=== PATIENT | female | born 1955 | race Caucasian/White ===

== ENCOUNTER 2021-06-30 12:51 | Outpatient (CLI) | payer MEDICARE, SELFPAY ==
--- NOTE | ~2021-06-30 | CT_ITS ---
EXAMINATION: CT lung screening DATE: 06/30/2021 13:15 INDICATION: Heart palpitations. Tobacco dependence history. TECHNIQUE: Computed tomography (CT) of the chest was performed without intravenous contrast. The dose -length product was 59.87 mGy-cm. Automated exposure control and iterative reconstruction technique w ere employed. COMPARISON: None FINDINGS: There is atherosclerosis of the aorta and coronary arteries. Heart size is normal. No signi ficant pleural or pericardial effusion. No endobronchial lesions. No focal airspace consolidation. No pneumothorax. There is a 5 mm right middle lobe nodule, image 69. There are a few smaller 2-3 mm nod ules bilaterally. Mild emphysema. No acute osseous abnormality. IMPRESSION: 1. Lung-RADS category 2: Benign appearance or behavior. Continue annual screening with noncontrast lo w-dose chest CT in 12 months. Reviewed, dictated and finalized at location A. IMPRESSION: 1. Lung-RADS category 2: Benign appearance or behavior. Continue annual screeni ng with noncontrast low-dose chest CT in 12 months.
== END 2021-06-30 12:52 | disposition home or self-care (01) ==
PROVIDERS: PCP Family Medicine; Visit Provider Family Medicine
DX: Z12.2 Encounter for screening for malignant neoplasm of respiratory organs (principal); Z87.891 Personal history of nicotine dependence
CPT/HCPCS: 71271

== ENCOUNTER 2022-05-13 12:00 | Emergency (ER) | payer MEDICARE, MEDICAID, SELFPAY ==
--- NOTE | ~2022-05-13 | XR_ITS ---
XR chest 1V portable DATE: 05/13/2022 12:43 INDICATION: Dizziness TECHNIQUE: Portable AP chest on 05/13/2022 at 1247 hours COMPARISON: 06/30/2021 CT lung screening FINDINGS: Normal heart size. Aortic calcification. No hilar or mediastinal enlargement. No pulmonary infiltrate or consolidation, pleural effusion or pulmonary vascular congestion or pneumo thorax. Osteopenia. Old healed right rib fractures. IMPRESSION: No active cardiopulmonary disease Aortic atherosclerosis Osteopenia Reviewed, dictated and finalized at location A.
--- NOTE | 2022-05-13 12:15 | ED.WEAKNESS ---
HPI - Weakness General Chief complaint: Weakness Stated complaint: unable to walk Time Seen by Provider: 05/13/22 12:16 Source: patient Mode of arrival: wheelchair History of Present Illness HPI Narrative: 67-year-old female with a history of hypertension, diabetes mellitus presents to the ER with -- weakness -- difficulty walking. chronic knee pain Complaint: generalized weakness Onset (ago): week(s) Duration: constant Location: generalized Related Data Home Medications Medication Instructions Recorded Confirmed No Home Medications 05/13/22 05/13/22 Allergies Allergy/AdvReac Type Severity Reaction Status Date / Time Sulfa (Sulfonamide Allergy Unknown Unknown Verified 05/13/22 12:38 Antibiotics) Review of Systems Review of Systems: All systems reviewed & are unremarkable except as noted in HPI and below Constitutional: Constitutional: Reports as per HPI and Reports no additional constitutional complaints Eyes: Eyes: Reports as per HPI and Reports no additional eye complaints ENT: Reports system reviewed and no additional complaints, except as documented and Reports as per HPI Cardiovascular: Cardiovascular: Reports as per HPI and Reports no additional cardiovascular complaints Respiratory: Respiratory: Reports as per HPI and Reports no additional respiratory complaints Gastrointestinal: Gastrointestinal: Reports as per HPI and Reports no additional gastrointestinal complaints Genitourinary: Genitourinary: Reports no additional female genitourinary complaints and Reports as per HPI Musculoskeletal: Musculoskeletal: Reports no additional musculoskeletal complaints, Reports as per HPI and Reports arthralgias Comments: bilateral knee pain Integumentary/Breasts: Skin/Breast: Reports system reviewed and no additional complaints, except as docu Neurologic: Reports system reviewed and no additional complaints, except as documented and Reports as per HPI Psychiatric: Psychiatric: Reports no additional psychiatric complaints and Reports as per HPI Endocrine: Endocrine: Reports no additional endocrine complaints and Reports as per HPI Hematologic/Lymphatic: Hematologic/Lymphatic: Reports no additional hematologic/lymphatic complaints and Reports as per HPI Allergic/Immunologic: Allergic/Immunologic: Reports no additional allergic/immunologic complaints and Reports as per HPI [facility] Social History Social History Smoking status: Current every day smoker Alcohol intake: current Exam Const: General: ill appearing Nutritional Appearance: thin Orientation/consciousness: patient oriented x3 Limitations: no limitations HENMT: Head: normal to inspection Ears: external ears normal General nose exam: Normal external nose present Face and sinus: normal facial exam Mouth: Yes Normal oral and palatal mucosa present Teeth and gingiva: dentition normal ( extensive dental caries) Throat: posterior oropharynx normal Eyes: Conjunctivae: conjunctivae normal Pupils: Equal, round and reactive pupils present EOM: EOMs intact bilaterally Direct Ophthalmoscopy: no photophobia Neck: Neck: normal visual inspection, no lymphadenopathy and no meningeal signs Chest: Chest palpation & inspection: normal inspection of the chest Resp: Effort & Inspection: normal respiratory effort Auscultation: diminished lung sounds Cardio: Rate: regular rate Rhythm: regular rhythm GI: GI Palp: Yes Soft to palpation Other: no tenderness/rigidity /rebound : General: Yes no CVA tenderness Back/Spine/Pelvis: Back: no CVA tenderness Skin: General skin exam: normal color Rashes: no rashes Wounds: no wounds Neuro: General: patient oriented x3, moves all extremities, no meningeal signs, no focal motor deficits and CN's II-XI intact bilaterally Speech: normal speech Extrem: General: normal to inspection, no clubbing, cyanosis or edema and no pedal edema Psych
--- NOTE | 2022-05-13 12:25 | ECG_ITS ---
Measurements Intervals [place] Rate: 98 P: -60 ME: 190 QRS: 66 QRSD: 86 T: 66 QT: 363 QTc: 464 Interpretive Statements SINUS RHYTHM WITH FREQUENT VENTRICULAR PREMATURE COMPLEXES WITH OCCASIONAL SUPRAVENTRICULAR PREMATURE COMPLEXES CANNOT EXCLUDE SEPTAL MYOCARDIAL INFARCTION , OLD NO PREVIOUS ECG AVAILABLE FOR COMPARISON Electronically Signed On 05-14-2022 8:29:20 CDT by Donnell Ly M.D.
[2022-05-13 12:33] VITALS: BP 141/84; PULSE 104; RESP 20; TEMP 36.5; O2SAT 98
[2022-05-13 12:43] LABS: Basophils Absolute Auto 0.02 K/mm3 (0.00-0.10); Basophils Percent Auto 0.4 % (0.0-1.0); Eosinophils Absolute Auto 0.02 K/mm3 (0.02-0.50); Eosinophils Percent Auto 0.4 % (1.0-6.0); Hematocrit 46.4 % (35.0-42.0); Hemoglobin 15.1 g/dL (11.7-13.8); Immature Granulocyte Absolute 0.02 K/mm3 (0.00-0.00); Immature Granulocyte Percent A 0.4 % (0.0-0.0); Lymphocytes Absolute Auto 0.73 K/mm3 (1.10-4.50); Lymphocytes Percent Auto 14.8 % (18.0-42.0); Mean Corpuscular HGB Conc 32.5 g/dL (32.0-36.0); Mean Corpuscular Hemoglobin 27.7 pg (27.0-31.0); Mean Corpuscular Volume 85.1 fL (78.0-102.0); Monocytes Absolute Auto 0.24 K/mm3 (0.10-0.90); Monocytes Percent Auto 4.9 % (2.0-11.0); Neutrophils Absolute Auto 3.9 K/mm3 (1.7-7.2); Neutrophils Percent Auto 79.1 % (50.0-70.0); Platelet Count Result 280 K/mm3 (150-420); Red Blood Count 5.45 M/mm3 (4.20-5.40); White Blood Count 4.9 K/mm3 (4.8-10.8)
[2022-05-13 12:56] LABS: Prothrombin Time 10.9 Seconds (9.50-12.10); Uric Acid 5.8 mg/dL (2.6-6.0)
[2022-05-13 13:10] LABS: Alanine Aminotransferase 17 U/L (14-59); Albumin Level 3.3 g/dL (3.4-5.0); Alkaline Phosphatase 94 U/L (46-116); Anion Gap 13 mmol/L (8-16); Aspartate Amino Transferase 10 U/L (15-37); Bilirubin,Total 0.4 mg/dL (0.00-1.00); Blood Urea Nitrogen 16 mg/dL (7-18); Calcium 8.3 mg/dL (8.5-10.1); Carbon Dioxide 24 mmol/L (21-32); Chloride 105 mmol/L (98-108); Estimated CRCL calculation 54 ml/min; Estimated Glomerular Filt Rate > 60; Glucose 227 mg/dL (70-99); Lipase 75 U/L (73-393); Osmolality Calculated 302 mOsm/kg (285-295); Potassium 2.9 mmol/L (3.5-5.1); Sodium 142 mmol/L (136-145); Total Protein 6.7 g/dL (6.4-8.2); Troponin I 7.6 ng/L (0.00-60.4)
[2022-05-13] MEDS: LACTATED RINGERS 1,000 ML 999 ML IV CONT (13:42)
[2022-05-13] MEDS: SPIRONOLACTONE 25 MG TABLET PO (13:43)
[2022-05-13] MEDS: POTASSIUM BICARBONATE 25 MEQ TABEF 50 MEQ PO (13:43)
[2022-05-13 15:00] VITALS: BP 141/85; PULSE 58; RESP 20; O2SAT 98
[2022-05-13] MEDS: MAGNESIUM SULF 2 GM/WATER 50ML 2 GM/50 ML BAG IVPB (15:00)
[2022-05-13 15:06] LABS: Bilirubin Urine Negative (Negative); Color Urine Yellow (Yellow); Glucose Urine UA Negative (Negative); Ketones Urine 2+ (Negative); Leukocyte Esterase Ur Negative (Negative); Nitrate Urine Positive (Negative); Protein Urine Trace (Negative); Urobilinogen Urine 0.2 mg/dL (0.2-1.0)
[2022-05-13 15:14] LABS: Add Urine Microscopic? YES; Appearance Urine Slightly Cloudy (Clear); Bacteria Urine 4+ /hpf; Blood Urine Trace-Intact (Negative); Mucus Urine Heavy /lpf; Squamous Epithelial Cell Urine Few /hpf (Few); WBC Urine 0-3 /hpf (0-3)
[2022-05-13 16:06] LABS: Magnesium 3.1 mg/dL (1.8-2.4)
--- NOTE | 2022-05-13 17:00 | PC.NURSE ---
[address] [facility] called stated the had a bed for pt that the family is there wanting her to get rehabilitation since she can not walk well and can not take care of her self at home [id number] Linda called at home to ask if we do emergent level [facility] screening for jail and she said yes and would be right in pt has a bed waiting for her and sisters will take her there
[2022-05-13 18:00] VITALS: PULSE 56; RESP 20; O2SAT 97
--- NOTE | 2022-05-13 18:04 | PC.NURSE ---
2941 director case here to fill out level 1 screen
[2022-05-13 18:53] VITALS: BP 140/80; PULSE 58; RESP 20; TEMP 36.8; O2SAT 96
--- NOTE | 2022-05-13 18:56 | PC.NURSE ---
1845 pt discharged from ER and an Emergency Admission to [place] due to lack of caregiver and or lack of ability to care for self Level 1 emergency screen completed by Linda tsaipattern painter and sent to [facility] pt taken to [place] via private car
== END 2022-05-13 19:03 ==
PROVIDERS: Emergency Provider Internal Medicine Critical Care Medicine; PCP Family Medicine
DX: R53.1 Weakness (principal); M19.90 Unspecified osteoarthritis, unspecified site; E87.8 Other disorders of electrolyte and fluid balance, not elsewhere classified; F17.200 Nicotine dependence, unspecified, uncomplicated; I10 Essential (primary) hypertension; E11.9 Type 2 diabetes mellitus without complications
CPT/HCPCS: 36415; 71045; 80053; 81001; 83690; 83735; 84132; 84443; 84484; 84550; 85025; 85610; 93005; 96361; 96365; 99284; A9270; J3475; J7120

== ENCOUNTER 2022-05-18 06:37 | Outpatient (NON) | payer MEDICARE, SELFPAY ==
[2022-05-18 06:50] LABS: Basophils Absolute Auto 0.05 K/mm3 (0.00-0.10); Basophils Percent Auto 0.7 % (0.0-1.0); Eosinophils Absolute Auto 0.17 K/mm3 (0.02-0.50); Eosinophils Percent Auto 2.2 % (1.0-6.0); Hematocrit 45.7 % (35.0-42.0); Hemoglobin 14.2 g/dL (11.7-13.8); Immature Granulocyte Absolute 0.04 K/mm3 (0.00-0.00); Immature Granulocyte Percent A 0.5 % (0.0-0.0); Lymphocytes Absolute Auto 3.37 K/mm3 (1.10-4.50); Lymphocytes Percent Auto 44.3 % (18.0-42.0); Mean Corpuscular HGB Conc 31.1 g/dL (32.0-36.0); Mean Corpuscular Hemoglobin 27.4 pg (27.0-31.0); Mean Corpuscular Volume 88.2 fL (78.0-102.0); Monocytes Absolute Auto 0.41 K/mm3 (0.10-0.90); Monocytes Percent Auto 5.4 % (2.0-11.0); Neutrophils Absolute Auto 3.6 K/mm3 (1.7-7.2); Neutrophils Percent Auto 46.9 % (50.0-70.0); Platelet Count Result 276 K/mm3 (150-420); Red Blood Count 5.18 M/mm3 (4.20-5.40); Red Cell Distribution Width 14.5 % (11.6-14.4); White Blood Count 7.6 K/mm3 (4.8-10.8)
[2022-05-18 07:00] LABS: Creatinine Urine 28.63 mg/dL (40-278); MALB Creatinine Ratio 90.1 mg/g (0-30); Microalbumin Urine Random 25.8 mg/L
[2022-05-18 07:02] LABS: Hemoglobin A1C 5.1 % (<5.7)
[2022-05-18 07:14] LABS: Alanine Aminotransferase 21 U/L (14-59); Albumin Level 3.5 g/dL (3.4-5.0); Alkaline Phosphatase 82 U/L (46-116); Anion Gap 7 mmol/L (8-16); Aspartate Amino Transferase < 10 U/L (15-37); Bilirubin,Total 0.3 mg/dL (0.00-1.00); Blood Urea Nitrogen 11 mg/dL (7-18); Calcium 8.8 mg/dL (8.5-10.1); Carbon Dioxide 28 mmol/L (21-32); Chloride 103 mmol/L (98-108); Estimated Glomerular Filt Rate > 60; Glucose 68 mg/dL (70-99); Osmolality Calculated 283 mOsm/kg (285-295); Potassium 4.9 mmol/L (3.5-5.1); Sodium 138 mmol/L (136-145); Thyroid Stimulating Hormone 2.38 uIU/mL (0.36-3.74); Total Protein 6.4 g/dL (6.4-8.2)
[2022-05-26 20:04] LABS: ANCA Screen Negative (Negative); Myeloperoxidase Ab <1.0 AI (<1.0); Proteinase-3 Ab <1.0 AI (<1.0); S cerevisiae Ab (IgA) 5.8 U (<=20.0); S cerevisiae Ab (IgG) 10.4 U (<=20.0)
== END 2022-05-18 06:38 | disposition home or self-care (01) ==
LOC: CHSLAB 06:40
PROVIDERS: Visit Provider Family Medicine
DX: R62.7 Adult failure to thrive (principal); E11.9 Type 2 diabetes mellitus without complications
CPT/HCPCS: 36415; 80053; 82043; 83036; 84443; 85025; 86036; 86671

== ENCOUNTER 2022-05-22 14:13 | Outpatient (NON) | payer MEDICARE, SELFPAY ==
[2022-05-22 14:48] LABS: Occult Blood Negative (Negative)
== END 2022-05-22 14:14 | disposition home or self-care (01) ==
LOC: CHSLAB 14:16
PROVIDERS: Visit Provider Family Medicine
DX: Z12.11 Encounter for screening for malignant neoplasm of colon (principal)
CPT/HCPCS: 82274

== ENCOUNTER 2022-05-24 10:00 | Outpatient (CLI) | payer MEDICARE, SELFPAY ==
--- NOTE | ~2022-05-24 | MM_ITS ---
EXAMINATION: MM screening toney BI w jam HISTORY: Screening mammogram TECHNIQUE: Craniocaudal and mediolateral oblique 3-D tomosynthesis images were obtained and synthetic 2-D images were generated. CAD analysis was submitted and interpreted. COMPARISON: No prior mammogram is available for comparison at this institution. BREAST PARENCHYMAL COMPOSITION: There are scattered areas of fibroglandular density. FINDINGS: There is no evidence of suspicious mass, calcification, or architectural distortion to sugg est malignancy in either breast. There has been no suspicious interval change. IMPRESSION: 1. No mammographic evidence of malignancy. 2. Recommend routine screening mammography in one year. BI-RADS Category 1: Negative Reviewed, dictated and finalized at location A.
== END 2022-05-24 10:01 | disposition home or self-care (01) ==
LOC: CHSIMG 10:02
PROVIDERS: PCP Family Medicine; Visit Provider Family Medicine
DX: Z12.31 Encounter for screening mammogram for malignant neoplasm of breast (principal)
CPT/HCPCS: 77063; 77067

== ENCOUNTER 2022-09-09 06:54 | Outpatient (NON) | payer MEDICARE, SELFPAY ==
[2022-09-09 07:12] LABS: Basophils Absolute Auto 0.03 K/mm3 (0.00-0.10); Basophils Percent Auto 0.4 % (0.0-1.0); Eosinophils Absolute Auto 0.41 K/mm3 (0.02-0.50); Eosinophils Percent Auto 5.8 % (1.0-6.0); Hematocrit 38.4 % (35.0-42.0); Hemoglobin 12.2 g/dL (11.7-13.8); Immature Granulocyte Absolute 0.06 K/mm3 (0.00-0.00); Immature Granulocyte Percent A 0.8 % (0.0-0.0); Lymphocytes Absolute Auto 2.62 K/mm3 (1.10-4.50); Lymphocytes Percent Auto 36.7 % (18.0-42.0); Mean Corpuscular HGB Conc 31.8 g/dL (32.0-36.0); Mean Corpuscular Hemoglobin 27.2 pg (27.0-31.0); Mean Corpuscular Volume 85.7 fL (78.0-102.0); Mean Platelet Volume 11.5 fl (9.2-11.8); Monocytes Absolute Auto 0.63 K/mm3 (0.10-0.90); Monocytes Percent Auto 8.8 % (2.0-11.0); Neutrophils Absolute Auto 3.4 K/mm3 (1.7-7.2); Neutrophils Percent Auto 47.5 % (50.0-70.0); Platelet Count Result 267 K/mm3 (150-420); Red Blood Count 4.48 M/mm3 (4.20-5.40); Red Cell Distribution Width 13.2 % (11.6-14.4); White Blood Count 7.1 K/mm3 (4.8-10.8)
[2022-09-09 07:21] LABS: Hemoglobin A1C 5.5 % (<5.7)
[2022-09-09 07:32] LABS: Alanine Aminotransferase 13 U/L (14-59); Albumin Level 3.2 g/dL (3.4-5.0); Alkaline Phosphatase 71 U/L (46-116); Anion Gap 6 mmol/L (8-16); Aspartate Amino Transferase < 10 U/L (15-37); Bilirubin,Total 0.3 mg/dL (0.00-1.00); Blood Urea Nitrogen 9 mg/dL (7-18); Calcium 8.7 mg/dL (8.5-10.1); Carbon Dioxide 31 mmol/L (21-32); Chloride 104 mmol/L (98-108); Cholesterol 251 mg/dL (0-200); Estimated Glomerular Filt Rate > 60; Glucose 81 mg/dL (70-99); HDL Direct 54 mg/dL (40-60); LDL Cholesterol Calculated 176 mg/dL (<130); Osmolality Calculated 289 mOsm/kg (285-295); Potassium 4.3 mmol/L (3.5-5.1); Sodium 141 mmol/L (136-145); Thyroid Stimulating Hormone 1.12 uIU/mL (0.36-3.74); Total Protein 6.1 g/dL (6.4-8.2); Triglycerides 106 mg/dL (0-150)
== END 2022-09-09 06:55 | disposition home or self-care (01) ==
LOC: CHSLAB 06:56
PROVIDERS: PCP Family Medicine; Visit Provider Family Medicine
DX: R62.7 Adult failure to thrive (principal); M62.81 Muscle weakness (generalized); E11.9 Type 2 diabetes mellitus without complications
CPT/HCPCS: 36415; 80053; 80061; 83036; 84443; 85025

== ENCOUNTER 2022-11-08 06:51 | Outpatient (NON) | payer MEDICARE, SELFPAY ==
[2022-11-08 07:06] LABS: Basophils Absolute Auto 0.04 K/mm3 (0.00-0.10); Basophils Percent Auto 0.5 % (0.0-1.0); Eosinophils Absolute Auto 0.59 K/mm3 (0.02-0.50); Hematocrit 34.8 % (35.0-42.0); Hemoglobin 10.7 g/dL (11.7-13.8); Immature Granulocyte Absolute 0.09 K/mm3 (0.00-0.00); Immature Granulocyte Percent A 1.2 % (0.0-0.0); Lymphocytes Absolute Auto 2.87 K/mm3 (1.10-4.50); Mean Corpuscular HGB Conc 30.7 g/dL (32.0-36.0); Mean Corpuscular Hemoglobin 26.4 pg (27.0-31.0); Mean Corpuscular Volume 85.9 fL (78.0-102.0); Mean Platelet Volume 11.4 fl (9.2-11.8); Monocytes Absolute Auto 0.62 K/mm3 (0.10-0.90); Monocytes Percent Auto 8.4 % (2.0-11.0); Neutrophils Absolute Auto 3.1 K/mm3 (1.7-7.2); Neutrophils Percent Auto 42.9 % (50.0-70.0); Platelet Count Result 313 K/mm3 (150-420); Red Blood Count 4.05 M/mm3 (4.20-5.40); Red Cell Distribution Width 13.7 % (11.6-14.4); White Blood Count 7.4 K/mm3 (4.8-10.8)
[2022-11-08 07:23] LABS: Alanine Aminotransferase 14 U/L (14-59); Alkaline Phosphatase 77 U/L (46-116); Anion Gap 5 mmol/L (8-16); Aspartate Amino Transferase < 10 U/L (15-37); Bilirubin,Total 0.2 mg/dL (0.00-1.00); Blood Urea Nitrogen 17 mg/dL (7-18); Carbon Dioxide 32 mmol/L (21-32); Chloride 104 mmol/L (98-108); Estimated Glomerular Filt Rate > 60; Glucose 90 mg/dL (70-99); Osmolality Calculated 293 mOsm/kg (285-295); Potassium 4.9 mmol/L (3.5-5.1); Sodium 141 mmol/L (136-145); Total Protein 6.5 g/dL (6.4-8.2); Uric Acid 5.5 mg/dL (2.6-6.0)
== END 2022-11-08 06:52 | disposition home or self-care (01) ==
LOC: CHSLAB 06:53
PROVIDERS: Visit Provider Family Medicine
DX: M10.00 Idiopathic gout, unspecified site (principal); E11.42 Type 2 diabetes mellitus with diabetic polyneuropathy; R62.7 Adult failure to thrive
CPT/HCPCS: 36415; 80053; 84550; 85025

== ENCOUNTER 2022-11-16 06:36 | Outpatient (NON) | payer MEDICARE, SELFPAY ==
[2022-11-16 06:59] LABS: Basophils Absolute Auto 0.03 K/mm3 (0.00-0.10); Basophils Percent Auto 0.4 % (0.0-1.0); Eosinophils Absolute Auto 0.37 K/mm3 (0.02-0.50); Eosinophils Percent Auto 5.3 % (1.0-6.0); Hematocrit 34.2 % (35.0-42.0); Hemoglobin 10.3 g/dL (11.7-13.8); Immature Granulocyte Absolute 0.07 K/mm3 (0.00-0.00); Lymphocytes Absolute Auto 2.21 K/mm3 (1.10-4.50); Lymphocytes Percent Auto 31.8 % (18.0-42.0); Mean Corpuscular HGB Conc 30.1 g/dL (32.0-36.0); Mean Corpuscular Hemoglobin 26.1 pg (27.0-31.0); Mean Corpuscular Volume 86.6 fL (78.0-102.0); Mean Platelet Volume 11.7 fl (9.2-11.8); Monocytes Absolute Auto 0.53 K/mm3 (0.10-0.90); Monocytes Percent Auto 7.6 % (2.0-11.0); Neutrophils Absolute Auto 3.8 K/mm3 (1.7-7.2); Neutrophils Percent Auto 53.9 % (50.0-70.0); Platelet Count Result 224 K/mm3 (150-420); Red Blood Count 3.95 M/mm3 (4.20-5.40); Red Cell Distribution Width 14.2 % (11.6-14.4)
[2022-11-16 07:08] LABS: Hemoglobin A1C 5.9 % (<5.7)
[2022-11-16 07:54] LABS: Alanine Aminotransferase 13 U/L (14-59); Alkaline Phosphatase 71 U/L (46-116); Anion Gap 9 mmol/L (8-16); Aspartate Amino Transferase 13 U/L (15-37); Bilirubin,Total 0.1 mg/dL (0.00-1.00); Blood Urea Nitrogen 20 mg/dL (7-18); Calcium 8.3 mg/dL (8.5-10.1); Carbon Dioxide 27 mmol/L (21-32); Chloride 109 mmol/L (98-108); Estimated Glomerular Filt Rate > 60; Glucose 83 mg/dL (70-99); Osmolality Calculated 301 mOsm/kg (285-295); Potassium 4.1 mmol/L (3.5-5.1); Sodium 145 mmol/L (136-145); Total Protein 6.3 g/dL (6.4-8.2)
== END 2022-11-16 06:37 | disposition home or self-care (01) ==
LOC: CHSLAB 06:37
PROVIDERS: Visit Provider Family Medicine
DX: R62.7 Adult failure to thrive (principal); N11.1 Chronic obstructive pyelonephritis; E11.9 Type 2 diabetes mellitus without complications
CPT/HCPCS: 36415; 80053; 83036; 85025

== ENCOUNTER 2022-11-21 13:32 | Outpatient (NON) | payer MEDICARE, SELFPAY ==
[2022-11-21 13:57] LABS: Add Urine Microscopic? YES; Appearance Urine Clear (Clear); Bilirubin Urine Negative (Negative); Blood Urine 2+ (Negative); Color Urine Light Yellow (Yellow); Glucose Urine UA Negative (Negative); Ketones Urine Negative (Negative); Leukocyte Esterase Ur 2+ LEU/UL (Negative); Nitrate Urine Negative (Negative); Protein Urine Negative (Negative); Urobilinogen Urine 0.2 mg/dL (0.2-1.0); pH Urine 6.5 (5.0-8.0)
[2022-11-21 14:01] LABS: WBC Urine 16-20 /hpf (0-3)
[2022-11-21 14:02] LABS: Bacteria Urine Trace /hpf; Squamous Epithelial Cell Urine Few /hpf (Few)
== END 2022-11-21 13:33 | disposition home or self-care (01) ==
PROVIDERS: Visit Provider Family Medicine
DX: Z01.818 Encounter for other preprocedural examination (principal); R82.90 Unspecified abnormal findings in urine
CPT/HCPCS: 81001; 87086

== ENCOUNTER 2022-12-07 06:24 | Outpatient (NON) | payer MEDICARE, SELFPAY ==
[2022-12-07 06:46] LABS: Basophils Absolute Auto 0.04 K/mm3 (0.00-0.10); Basophils Percent Auto 0.5 % (0.0-1.0); Eosinophils Absolute Auto 0.58 K/mm3 (0.02-0.50); Eosinophils Percent Auto 7.2 % (1.0-6.0); Hematocrit 35.5 % (35.0-42.0); Hemoglobin 10.9 g/dL (11.7-13.8); Immature Granulocyte Absolute 0.09 K/mm3 (0.00-0.00); Immature Granulocyte Percent A 1.1 % (0.0-0.0); Lymphocytes Absolute Auto 2.56 K/mm3 (1.10-4.50); Lymphocytes Percent Auto 31.7 % (18.0-42.0); Mean Corpuscular HGB Conc 30.7 g/dL (32.0-36.0); Mean Corpuscular Hemoglobin 26.2 pg (27.0-31.0); Mean Corpuscular Volume 85.3 fL (78.0-102.0); Mean Platelet Volume 11.5 fl (9.2-11.8); Monocytes Absolute Auto 0.57 K/mm3 (0.10-0.90); Monocytes Percent Auto 7.1 % (2.0-11.0); Neutrophils Absolute Auto 4.2 K/mm3 (1.7-7.2); Neutrophils Percent Auto 52.4 % (50.0-70.0); Platelet Count Result 351 K/mm3 (150-420); Red Blood Count 4.16 M/mm3 (4.20-5.40); White Blood Count 8.1 K/mm3 (4.8-10.8)
== END 2022-12-07 06:25 | disposition home or self-care (01) ==
LOC: CHSLAB 06:26
PROVIDERS: PCP Family Medicine; Visit Provider Family Medicine
DX: E27.9 Disorder of adrenal gland, unspecified (principal); E11.42 Type 2 diabetes mellitus with diabetic polyneuropathy
CPT/HCPCS: 36415; 85025

== ENCOUNTER 2022-12-21 07:38 | Outpatient (NON) | payer MEDICARE, SELFPAY ==
[2022-12-21 08:31] LABS: Basophils Absolute Auto 0.05 K/mm3 (0.00-0.10); Basophils Percent Auto 0.7 % (0.0-1.0); Eosinophils Absolute Auto 0.52 K/mm3 (0.02-0.50); Eosinophils Percent Auto 7.3 % (1.0-6.0); Hematocrit 35.3 % (35.0-42.0); Hemoglobin 10.9 g/dL (11.7-13.8); Immature Granulocyte Absolute 0.06 K/mm3 (0.00-0.00); Immature Granulocyte Percent A 0.8 % (0.0-0.0); Lymphocytes Absolute Auto 2.85 K/mm3 (1.10-4.50); Lymphocytes Percent Auto 40.3 % (18.0-42.0); Mean Corpuscular HGB Conc 30.9 g/dL (32.0-36.0); Mean Corpuscular Volume 84.2 fL (78.0-102.0); Mean Platelet Volume 12.2 fl (9.2-11.8); Monocytes Absolute Auto 0.54 K/mm3 (0.10-0.90); Monocytes Percent Auto 7.6 % (2.0-11.0); Neutrophils Absolute Auto 3.1 K/mm3 (1.7-7.2); Neutrophils Percent Auto 43.3 % (50.0-70.0); Platelet Count Result 292 K/mm3 (150-420); Red Blood Count 4.19 M/mm3 (4.20-5.40); Red Cell Distribution Width 14.3 % (11.6-14.4); White Blood Count 7.1 K/mm3 (4.8-10.8)
[2022-12-21 14:12] LABS: Ferritin 191 ng/mL (8-252); Iron 48 ug/dL (50-170); Percent Iron Saturation 19 % (12-57)
== END 2022-12-21 07:39 | disposition home or self-care (01) ==
LOC: CHSLAB 07:39
PROVIDERS: Visit Provider Family Medicine
DX: E27.9 Disorder of adrenal gland, unspecified (principal); R62.7 Adult failure to thrive; E11.42 Type 2 diabetes mellitus with diabetic polyneuropathy
CPT/HCPCS: 36415; 82728; 83540; 83550; 85025

== ENCOUNTER 2023-02-20 06:26 | Outpatient (NON) | payer MEDICARE, SELFPAY ==
[2023-02-20 06:55] LABS: Alanine Aminotransferase 13 U/L (14-59); Alkaline Phosphatase 65 U/L (46-116); Aspartate Amino Transferase 12 U/L (15-37); Bilirubin,Total 0.2 mg/dL (0.00-1.00); Total Protein 6.4 g/dL (6.4-8.2)
[2023-02-20 07:03] LABS: Bilirubin Direct < 0.1 mg/dL (0-0.2)
== END 2023-02-20 06:27 | disposition home or self-care (01) ==
LOC: CHSLAB 06:28
PROVIDERS: PCP Family Medicine; Visit Provider Family Medicine
DX: E27.9 Disorder of adrenal gland, unspecified (principal)
CPT/HCPCS: 36415; 80076

== ENCOUNTER 2023-04-19 06:28 | Outpatient (NON) | payer MEDICARE, SELFPAY ==
[2023-04-19 06:47] LABS: Strep Group A RT-PCR NOT DETECTED (Negative)
== END 2023-04-19 06:29 | disposition home or self-care (01) ==
LOC: CHSLAB 06:29
PROVIDERS: Visit Provider Family Medicine
DX: J02.9 Acute pharyngitis, unspecified (principal)
CPT/HCPCS: 87651

== ENCOUNTER 2023-04-19 10:40 | Outpatient (CLI) | payer MEDICARE, SELFPAY ==
--- NOTE | ~2023-04-19 | XR_ITS ---
Right Knee Technique: AP, lateral, and sunrise views were obtained. Clinical History: Arthritis COMPARISON: 07/14/2019 Findings: No fracture or dislocation is seen. There is moderate osteophyte formation of the medial la teral joint lines. Probable lateral compartment narrowing. Probable large loose body laterally measur ing up to 2.6 cm in diameter. There is minimal degenerative change of the patellofemoral compartment. Soft tissues are unremarkable. No joint effusion is seen. 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 Minimal patellofem oral compartment degenerative change. Probable large lateral loose body measuring up to 2.6 cm in diameter. Reviewed, dictated and finalized at location M. 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 Minimal patellofemoral compartment degenerative change. Probable large lateral loose body measuring up to 2.6 cm in diameter.
== END 2023-04-19 10:41 | disposition home or self-care (01) ==
LOC: CHSIMG 10:41
PROVIDERS: PCP Family Medicine; Visit Provider Family Medicine
DX: M25.561 Pain in right knee (principal); M17.11 Unilateral primary osteoarthritis, right knee
CPT/HCPCS: 73562

== ENCOUNTER 2023-05-10 06:48 | Outpatient (NON) | payer MEDICARE, SELFPAY ==
[2023-05-10 07:36] LABS: Uric Acid 6.9 mg/dL (2.6-6.0)
== END 2023-05-10 06:49 | disposition home or self-care (01) ==
LOC: CHSLAB 06:50
PROVIDERS: Visit Provider Family Medicine
DX: M10.00 Idiopathic gout, unspecified site (principal)
CPT/HCPCS: 36415; 84550

== ENCOUNTER 2023-06-08 13:41 | Outpatient (NON) | payer MEDICARE, SELFPAY ==
[2023-06-08 14:07] LABS: Strep Group A RT-PCR NOT DETECTED (Negative)
[2023-06-08 14:08] LABS: Influenza Control Valid (Valid)
[2023-06-08 17:13] LABS: SARS-CoV-2 RNA PCR Negative (Negative)
== END 2023-06-08 13:42 | disposition home or self-care (01) ==
PROVIDERS: Visit Provider Family Medicine
DX: J44.9 Chronic obstructive pulmonary disease, unspecified (principal); R05.9 Cough, unspecified
CPT/HCPCS: 87635; 87651; 87804

== ENCOUNTER 2023-06-14 07:05 | Outpatient (NON) | payer MEDICARE, SELFPAY ==
[2023-06-14 07:21] LABS: Hemoglobin 11.5 g/dL (11.7-13.8); Red Blood Count 4.74 M/mm3 (4.20-5.40)
[2023-06-14 07:22] LABS: Basophils Absolute Auto 0.04 K/mm3 (0.00-0.10); Basophils Percent Auto 0.4 % (0.0-1.0); Eosinophils Absolute Auto 0.44 K/mm3 (0.02-0.50); Eosinophils Percent Auto 4.9 % (1.0-6.0); Hematocrit 38.5 % (35.0-42.0); Immature Granulocyte Absolute 0.06 K/mm3 (0.00-0.00); Immature Granulocyte Percent A 0.7 % (0.0-0.0); Lymphocytes Absolute Auto 2.86 K/mm3 (1.10-4.50); Lymphocytes Percent Auto 31.7 % (18.0-42.0); Mean Corpuscular HGB Conc 29.9 g/dL (32.0-36.0); Mean Corpuscular Hemoglobin 24.3 pg (27.0-31.0); Mean Corpuscular Volume 81.2 fL (78.0-102.0); Mean Platelet Volume 11.8 fl (9.2-11.8); Monocytes Absolute Auto 0.52 K/mm3 (0.10-0.90); Monocytes Percent Auto 5.8 % (2.0-11.0); Neutrophils Absolute Auto 5.1 K/mm3 (1.7-7.2); Neutrophils Percent Auto 56.5 % (50.0-70.0); Platelet Count Result 324 K/mm3 (150-420); Red Cell Distribution Width 15.7 % (11.6-14.4)
[2023-06-14 07:32] LABS: Hemoglobin A1C 6.4 % (<5.7)
[2023-06-14 07:48] LABS: Alanine Aminotransferase 17 U/L (14-59); Albumin Level 3.1 g/dL (3.4-5.0); Alkaline Phosphatase 86 U/L (46-116); Anion Gap 10 mmol/L (8-16); Aspartate Amino Transferase 12 U/L (15-37); Bilirubin Direct 0.1 mg/dL (0-0.2); Bilirubin,Total 0.2 mg/dL (0.00-1.00); Blood Urea Nitrogen 16 mg/dL (7-18); Calcium 9.3 mg/dL (8.5-10.1); Carbon Dioxide 27 mmol/L (21-32); Chloride 105 mmol/L (98-108); Cholesterol 198 mg/dL (0-200); Estimated Glomerular Filt Rate > 60; Glucose 106 mg/dL (70-99); HDL Direct 34 mg/dL (40-60); LDL Cholesterol Calculated 108 mg/dL (<130); Osmolality Calculated 295 mOsm/kg (285-295); Potassium 4.7 mmol/L (3.5-5.1); Sodium 142 mmol/L (136-145); Thyroid Stimulating Hormone 1.11 uIU/mL (0.36-3.74); Total Protein 6.8 g/dL (6.4-8.2); Triglycerides 280 mg/dL (0-150); Uric Acid 7.3 mg/dL (2.6-6.0)
== END 2023-06-14 07:06 | disposition home or self-care (01) ==
LOC: CHSLAB 07:06
PROVIDERS: Visit Provider Family Medicine
DX: E27.9 Disorder of adrenal gland, unspecified (principal); E11.9 Type 2 diabetes mellitus without complications; R53.83 Other fatigue; I10 Essential (primary) hypertension
CPT/HCPCS: 36415; 80053; 80061; 82248; 83036; 84443; 84550; 85025

== ENCOUNTER 2023-07-31 06:40 | Outpatient (NON) | payer MEDICARE, SELFPAY ==
[2023-07-31 07:12] LABS: Alanine Aminotransferase 25 U/L (14-59); Alkaline Phosphatase 86 U/L (46-116); Anion Gap 10 mmol/L (8-16); Aspartate Amino Transferase 15 U/L (15-37); Bilirubin,Total 0.3 mg/dL (0.00-1.00); Blood Urea Nitrogen 17 mg/dL (7-18); Calcium 8.7 mg/dL (8.5-10.1); Carbon Dioxide 26 mmol/L (21-32); Chloride 103 mmol/L (98-108); Estimated Glomerular Filt Rate > 60; Glucose 118 mg/dL (70-99); Osmolality Calculated 290 mOsm/kg (285-295); Sodium 139 mmol/L (136-145); Total Protein 6.5 g/dL (6.4-8.2)
== END 2023-07-31 06:41 | disposition home or self-care (01) ==
LOC: CHSLAB 06:42
PROVIDERS: Visit Provider Family Medicine
DX: E27.9 Disorder of adrenal gland, unspecified (principal); E11.42 Type 2 diabetes mellitus with diabetic polyneuropathy; N11.1 Chronic obstructive pyelonephritis
CPT/HCPCS: 36415; 80053

== ENCOUNTER 2023-10-05 16:11 | Observation (INO) | payer MEDICARE, SELFPAY ==
[2023-10-05] VITALS (33 sets, daily range): BP systolic 116–170; BP diastolic 52–84; PULSE 98–124; RESP 20–37; TEMP 38.1; O2SAT 91–99
--- NOTE | ~2023-10-05 | XR_ITS ---
XR chest 1V portable 10/05/2023 16:53 Indication: Cough and fever. Weakness. Procedure: AP portable chest Comparison: 05/13/2022 Findings: Heart size normal. No focal air space disease, pulmonary edema, pleural effusion or suspect ed pneumothorax. Impression: 1: No acute cardiopulmonary disease. Reviewed, dictated and finalized at location A. P KETTLE TENDER Impression: 1: No acute cardiopulmonary disease.
--- NOTE | 2023-10-05 16:28 | ECG_ITS ---
Measurements Intervals [place] Rate: 119 P: -86 OK: 91 QRS: 50 QRSD: 81 T: 39 QT: 328 QTc: 462 Interpretive Statements ECTOPIC ATRIAL TACHYCARDIA WITH FREQUENT VENTRICULAR PREMATURE COMPLEXES ABNORMAL RHYTHM ECG COMPARED TO ECG 05/13/2022 12:32:30 ECTOPIC ATRIAL TACHYCARDIA NOW PRESENT Electronically Signed On 10-05-2023 16:46:43 POWERED BRIDGE SPECIALIST by Omar Gaston M.D.
--- NOTE | 2023-10-05 16:28 | ED.GENADULT ---
HPI - General Adult General Chief complaint: Weakness Stated complaint: fever. dizziness. Time Seen by Provider: 10/05/23 16:20 History of Present Illness HPI narrative: Sherlyn is a 68F with a PMH of DMII, chronic obstructive pyelonephritis, depression, hypertension, and physical deconditioning that came to the ED from the [facility] not feeling well. She woke up feeling nauseated and tired and progressed to have a cough and some body aches. She was weak and slowly fell to the ground. She did not hit her head or neck. Staff thought she felt warm and sent her to the ED. She denies any chest pain or dyspnea. Related Data Home Medications Medication Instructions Recorded Confirmed acetaminophen 500 mg tablet 500 mg PO Q6H PRN Pain 07/25/23 10/06/23 bisacodyl 5 mg tablet 5 mg PO .COMPLEX 07/25/23 10/06/23 capsaicin 0.075 % topical cream 1 applic topical BID 07/25/23 10/06/23 cetirizine 10 mg tablet (Zyrtec) 10 mg PO DAILY 07/25/23 10/06/23 fluticasone propionate 50 1 spray intranasal DAILY 07/25/23 10/06/23 mcg/actuation nasal spray,suspension gabapentin 300 mg capsule 300 mg PO TID 07/25/23 10/06/23 polyethylene glycol 3350 17 gram 17 g PO DAILY PRN Constipation 07/25/23 10/06/23 oral powder packet tramadol 50 mg tablet 50 mg PO Q6H PRN Pain 07/25/23 10/06/23 venlafaxine 37.5 mg tablet 37.5 mg PO DAILY 07/25/23 10/06/23 calcium carbonate 500 mg calcium 500 mg PO BID 10/06/23 10/06/23 (1,250 mg) tablet cholecalciferol (vitamin D3) 10 15 mcg PO BID 10/06/23 10/06/23 mcg (400 unit) tablet Allergies Allergy/AdvReac Type Severity Reaction Status Date / Time Sulfa (Sulfonamide Allergy Unknown Unknown Verified 10/05/23 16:32 Antibiotics) Review of Systems Constitutional: Constitutional: Denies body ache(s), Denies chills, Denies fever(s), Denies weight gain and Denies weight loss Eyes: Eyes: Denies change in vision, Denies eye discharge and Denies loss of vision ENT: Denies Normal hearing present, Denies vertigo, Denies dizziness and Denies epistaxis Cardiovascular: Cardiovascular: Denies chest pain with activity, Denies syncope, Denies edema and Denies dyspnea on exertion Respiratory: Respiratory: Denies cough, Denies hemoptysis and Denies dyspnea on exertion Gastrointestinal: Gastrointestinal: Denies abdominal pain, Denies diarrhea, Denies nausea and Denies vomiting Genitourinary: Genitourinary: Denies hematuria and Denies dysuria Musculoskeletal: Musculoskeletal: Denies deformity Neurologic: Denies Normal hearing present, Denies behavioral changes, Denies confusion, Denies vertigo, Denies dizziness, Denies syncope and Denies loss of vision Psychiatric: Psychiatric: Denies anxiety, Denies behavioral changes, Denies confusion and Denies depression Endocrine: Endocrine: Reports no additional endocrine complaints Hematologic/Lymphatic: Hematologic/Lymphatic: Reports no additional hematologic/lymphatic complaints Allergic/Immunologic: Allergic/Immunologic: Reports no additional allergic/immunologic complaints [facility] Past Medical History Medical History (Updated 10/15/23 @ 08:45 by Moises Pitts DO) Effusion of knee joint right Instability of knee joint Muscular deconditioning Poor dentition Right knee DJD Valgus deformity, not elsewhere classified, right knee Family History Family History (Updated 07/25/23 @ 14:29 by France Plaza CMA) Unknown Hypertension Lung disease Heart disease Diabetes mellitus Arthritis Hyperlipidemia Social History Social History (Updated 07/25/23 @ 14:30 by France Plaza CMA) Smoking packs per day: 1 Smoking cigarettes per day: 20.0 Years smoked: 53 Smoking pack-years: 53.00 Smoking status: Former smoker Tobacco type: cigarettes Second hand tobacco smoke exposure: No Smoking end date: 10/08/20 Alcohol intake: former Substance use: never Do You Feel Safe in your Home?: Yes Lack of Transportation: No Lack o
[2023-10-05 16:43] LABS: Basophils Absolute Auto 0.04 K/mm3 (0.00-0.10); Basophils Percent Auto 0.3 % (0.0-1.0); Eosinophils Absolute Auto 0.15 K/mm3 (0.02-0.50); Eosinophils Percent Auto 1.3 % (1.0-6.0); Hemoglobin 12.2 g/dL (11.7-13.8); Immature Granulocyte Absolute 0.06 K/mm3 (0.00-0.00); Immature Granulocyte Percent A 0.5 % (0.0-0.0); Lymphocytes Absolute Auto 0.72 K/mm3 (1.10-4.50); Lymphocytes Percent Auto 6.3 % (18.0-42.0); Mean Corpuscular HGB Conc 30.5 g/dL (32.0-36.0); Mean Corpuscular Hemoglobin 24.7 pg (27.0-31.0); Monocytes Absolute Auto 0.49 K/mm3 (0.10-0.90); Monocytes Percent Auto 4.3 % (2.0-11.0); Neutrophils Percent Auto 87.3 % (50.0-70.0); Platelet Count Result 313 K/mm3 (150-420); Red Blood Count 4.94 M/mm3 (4.20-5.40); Red Cell Distribution Width 14.8 % (11.6-14.4); White Blood Count 11.5 K/mm3 (4.8-10.8)
[2023-10-05] MEDS: ONDANSETRON INJ 4 MG/2 ML VIAL IV PUSH (16:55)
[2023-10-05] MEDS: SODIUM CHLORIDE 0.9% IV 500 ML 999 ML IV CONT ×2 (16:55→18:53)
[2023-10-05 16:57] LABS: Appearance Urine Slightly Cloudy (Clear); Bilirubin Urine Negative (Negative); Blood Urine Trace-Intact (Negative); Color Urine Light Yellow (Yellow); Glucose Urine UA Negative (Negative); Ketones Urine Negative (Negative); Leukocyte Esterase Ur Negative LEU/UL (Negative); Nitrate Urine Negative (Negative); Protein Urine Negative (Negative); Specific Grav Ur 1.025 (1.010-1.020); Urobilinogen Urine 0.2 mg/dL (0.2-1.0); pH Urine 5.5 (5.0-8.0)
[2023-10-05 17:00] LABS: Alanine Aminotransferase 32 U/L (14-59); Albumin Level 3.7 g/dL (3.4-5.0); Alkaline Phosphatase 84 U/L (46-116); Anion Gap 9 mmol/L (8-16); Aspartate Amino Transferase 25 U/L (15-37); Bilirubin,Total 0.5 mg/dL (0.00-1.00); Blood Urea Nitrogen 16 mg/dL (7-18); Calcium 8.4 mg/dL (8.5-10.1); Carbon Dioxide 28 mmol/L (21-32); Chloride 98 mmol/L (98-108); Estimated CRCL calculation 42 ml/min; Estimated Glomerular Filt Rate 50; Glucose 111 mg/dL (70-99); Osmolality Calculated 282 mOsm/kg (285-295); Sodium 135 mmol/L (136-145); Total Protein 8.2 g/dL (6.4-8.2)
[2023-10-05 17:07] LABS: Add Urine Microscopic? YES; Bacteria Urine Trace /hpf; RBC Urine 0-2 /hpf (0-2); Squamous Epithelial Cell Urine Moderate /hpf (Few); WBC Urine None seen /hpf (0-3)
[2023-10-05 17:08] LABS: NT Pro B Type Natriuretic Pept 150 pg/mL (0-125); Troponin I 6.3 ng/L (0.00-60.4)
[2023-10-05 17:18] LABS: SARS-CoV-2 RNA PCR Negative (Negative)
[2023-10-05 17:22] LABS: Influenza A QL RT-PCR Positive (Negative); Influenza B QL RT-PCR Negative (Negative); RSV RNA, RT-PCR Negative (Negative)
[2023-10-05] MEDS: AMIODARONE 150 MG/D5W 100 ML 150 MG/100 ML BAG 600 MG IV CONT (17:41)
[2023-10-05] MEDS: OSELTAMIVIR PHOSPHATE 30 MG CAPSULE PO (17:41)
--- NOTE | 2023-10-05 18:12 | ECG_ITS ---
Measurements Intervals [place] Rate: 108 P: 264 OK: 117 QRS: 45 QRSD: 74 T: 39 QT: 328 QTc: 440 Interpretive Statements ECTOPIC ATRIAL TACHYCARDIA LOW QRS VOLTAGE IN PRECORDIAL LEADS [QRS DEFLECTION < 1.0 mV IN CHEST LEADS] ABNORMAL RHYTHM ECG COMPARED TO ECG 10/05/2023 16:48:09 NO SIGNIFICANT CHANGES Electronically Signed On 10-07-2023 14:15:03 STENCILING MACHINE TENDER by Omar Gaston M.D.
[2023-10-05] MEDS: AMIODARONE 360 MG/D5W 200 ML 360 MG/200 ML BAG 25 MG IV CONT (19:31)
[2023-10-06] VITALS: BP 131/46; PULSE 94; RESP 16; TEMP 37.2; O2SAT 94
[2023-10-06] MEDS: AMIODARONE 360 MG/D5W 200 ML 360 MG/200 ML BAG 16.67 MG IV CONT (03:44)
[2023-10-06 04:00] VITALS: PULSE 80
[2023-10-06 05:43] LABS: Basophils Absolute Auto 0.01 K/mm3 (0.00-0.10); Basophils Percent Auto 0.2 % (0.0-1.0); Eosinophils Absolute Auto 0.02 K/mm3 (0.02-0.50); Eosinophils Percent Auto 0.3 % (1.0-6.0); Hematocrit 36.6 % (35.0-42.0); Hemoglobin 11.3 g/dL (11.7-13.8); Immature Granulocyte Absolute 0.05 K/mm3 (0.00-0.00); Immature Granulocyte Percent A 0.8 % (0.0-0.0); Lymphocytes Absolute Auto 1.05 K/mm3 (1.10-4.50); Lymphocytes Percent Auto 17.5 % (18.0-42.0); Mean Corpuscular HGB Conc 30.9 g/dL (32.0-36.0); Mean Corpuscular Hemoglobin 25.1 pg (27.0-31.0); Mean Corpuscular Volume 81.3 fL (78.0-102.0); Mean Platelet Volume 11.4 fl (9.2-11.8); Monocytes Percent Auto 8.3 % (2.0-11.0); Neutrophils Absolute Auto 4.4 K/mm3 (1.7-7.2); Neutrophils Percent Auto 72.9 % (50.0-70.0); Platelet Count Result 251 K/mm3 (150-420); Red Cell Distribution Width 14.9 % (11.6-14.4)
[2023-10-06 05:59] LABS: Anion Gap 8 mmol/L (8-16); Blood Urea Nitrogen 11 mg/dL (7-18); Calcium 8.4 mg/dL (8.5-10.1); Carbon Dioxide 28 mmol/L (21-32); Chloride 100 mmol/L (98-108); Estimated CRCL calculation 47 ml/min; Estimated Glomerular Filt Rate 57; Glucose 113 mg/dL (70-99); Osmolality Calculated 282 mOsm/kg (285-295); Potassium 3.5 mmol/L (3.5-5.1); Sodium 136 mmol/L (136-145)
[2023-10-06 08:00] VITALS: BP 119/56; PULSE 83; PULSE 84; RESP 18; TEMP 37.3; O2SAT 93
[2023-10-06 09:56] VITALS: PULSE 86
[2023-10-06] MEDS: AMIODARONE HCL 50 MG TABLET PO (09:56)
[2023-10-06] MEDS: ENOXAPARIN 30 MG/0.3 ML SYRINGE SUB-Q (09:56)
[2023-10-06] MEDS: DOCUSATE SODIUM 100 MG CAPSULE PO (09:56)
--- NOTE | 2023-10-06 10:06 | PM.IMHP ---
H&P: HPI History of Present Illness Date/Time: 10/06/23 10:06 [facility] Past Medical History Medical History (Updated 10/06/23 @ 10:17 by Mitesh Gonzalez NP) Effusion of knee joint right Instability of knee joint Muscular deconditioning Poor dentition Right knee DJD Valgus deformity, not elsewhere classified, right knee Family History Family History (Updated 07/25/23 @ 14:29 by France Plaza CMA) Unknown Hypertension Lung disease Heart disease Diabetes mellitus Arthritis Hyperlipidemia Social History Social History (Updated 07/25/23 @ 14:30 by France Plaza CMA) Smoking packs per day: 1 Smoking cigarettes per day: 20.0 Years smoked: 53 Smoking pack-years: 53.00 Smoking status: Former smoker Tobacco type: cigarettes Second hand tobacco smoke exposure: No Smoking end date: 10/08/20 Alcohol intake: former Substance use: never Do You Feel Safe in your Home?: Yes Lack of Transportation: No Lack of Food: Never True Current Housing: I Have Housing Concerned About Future Housing: No Difficulty Paying Gas/Electric Bills: No Difficulty Paying for Meds: No Currently Unemployed: No Education: High School Diploma/GED Difficulty w/ Childcare or Family Care: No Occupation/Education: retired Gender identity (if verbalized by the patient): Female Spiritual care concerns: No Meds Home Medications and Allergies Home Medications Medication Instructions Recorded Confirmed Type acetaminophen 500 mg tablet 500 mg PO Q6H PRN Pain 07/25/23 10/06/23 History bisacodyl 5 mg tablet 5 mg PO .COMPLEX 07/25/23 10/06/23 History capsaicin 0.075 % topical cream 1 applic topical BID 07/25/23 10/06/23 History cetirizine 10 mg tablet (Zyrtec) 10 mg PO DAILY 07/25/23 10/06/23 History fluticasone propionate 50 1 spray intranasal DAILY 07/25/23 10/06/23 History mcg/actuation nasal spray,suspension gabapentin 300 mg capsule 300 mg PO TID 07/25/23 10/06/23 History polyethylene glycol 3350 17 gram 17 g PO DAILY PRN Constipation 07/25/23 10/06/23 History oral powder packet tramadol 50 mg tablet 50 mg PO Q6H PRN Pain 07/25/23 10/06/23 History venlafaxine 37.5 mg tablet 37.5 mg PO DAILY 07/25/23 10/06/23 History amiodarone 100 mg tablet 100 mg PO DAILY #30 tabs 10/06/23 Rx calcium carbonate 500 mg calcium 500 mg PO BID 10/06/23 10/06/23 History (1,250 mg) tablet cholecalciferol (vitamin D3) 10 15 mcg PO BID 10/06/23 10/06/23 History mcg (400 unit) tablet Allergies Allergy/AdvReac Type Severity Reaction Status Date / Time Sulfa (Sulfonamide Allergy Unknown Unknown Verified 10/05/23 16:32 Antibiotics) Vital Signs Vital Signs - 24 hr 10/05/23 16:11 10/05/23 17:41 10/05/23 16:31 Temperature 100.5 F H Pulse Rate 124 H 114 H 120 H Respiratory Rate 22 H 25 H Blood Pressure 170/84 H 138/80 Pulse Oximetry 95 94 Oxygen Delivery Room Air 10/05/23 16:45 10/05/23 16:46 10/05/23 17:00 Temperature Pulse Rate 120 H 121 H 119 H Respiratory Rate 30 H 27 H 26 H Blood Pressure 144/75 H 146/79 H Pulse Oximetry 93 93 92 Oxygen Delivery 10/05/23 17:01 10/05/23 17:15 10/05/23 17:16 Temperature Pulse Rate 117 H 113 H 112 H Respiratory Rate 29 H 20 20 Blood Pressure 145/79 H Pulse Oximetry 91 Oxygen Delivery 10/05/23 17:30 10/05/23 17:31 10/05/23 17:52 Temperature Pulse Rate 112 H 113 H 104 H Respiratory Rate 29 H 26 H Blood Pressure 138/80 133/52 L Pulse Oximetry 93 95 Oxygen Delivery 10/05/23 17:45 10/05/23 17:46 10/05/23 18:00 Temperature Pulse Rate 123 H 112 H 104 H Respiratory Rate 27 H 25 H 29 H Blood Pressure 137/75 135/58 L Pulse Oximetry 97 96 95 Oxygen Delivery 10/05/23 18:01 10/05/23 18:15 10/05/23 18:16 Temperature Pulse Rate 104 H 110 H 109 H Respiratory Rate 25 H 37 H 24 H Blood Pressure 133/62 Pulse Oximetry 92 91 93 Oxygen Delivery 10/05/23 18:30 10/05/23
--- NOTE | 2023-10-06 10:10 | PM.SD2 ---
Same Day Admit/Disch: HPI History of Present Illness Chief complaint: INFLUENZA JUNCTIONAL TACHYCARDIA Narrative: Sherlyn Long is a 68 [place] [address] Emergency Room Visit Note Draft Patient: Sherlyn Long MR#: [id number] : 1955 Acct:[id number] Age: 68 ADM Date: 10/05/23 Loc: [facility] Attending Dr: Jeromy Lanza M.D. cc: ~ HPI - General Adult General Chief complaint: Weakness Stated complaint: fever. dizziness. Time Seen by Provider: 10/05/23 16:20 History of Present Illness HPI narrative: Sherlyn is a 68F with a PMH of DMII, chronic obstructive pyelonephritis, depression, hypertension, and physical deconditioning that came to the ED from the [facility] not feeling well. She woke up feeling nauseated and tired and progressed to have a cough and some body aches. She was weak and slowly fell to the ground. She did not hit her head or neck. Staff thought she felt warm and sent her to the ED. She denies any chest pain or dyspnea. [facility] Past Medical History Medical History (Updated 10/06/23 @ 10:17 by Mitesh Gonzalez NP) Effusion of knee joint right Instability of knee joint Muscular deconditioning Poor dentition Right knee DJD Valgus deformity, not elsewhere classified, right knee Family History Family History (Updated 07/25/23 @ 14:29 by France Plaza CMA) Unknown Hypertension Lung disease Heart disease Diabetes mellitus Arthritis Hyperlipidemia Social History Social History (Updated 07/25/23 @ 14:30 by France Plaza CMA) Smoking packs per day: 1 Smoking cigarettes per day: 20.0 Years smoked: 53 Smoking pack-years: 53.00 Smoking status: Former smoker Tobacco type: cigarettes Second hand tobacco smoke exposure: No Smoking end date: 10/08/20 Alcohol intake: former Substance use: never Do You Feel Safe in your Home?: Yes Lack of Transportation: No Lack of Food: Never True Current Housing: I Have Housing Concerned About Future Housing: No Difficulty Paying Gas/Electric Bills: No Difficulty Paying for Meds: No Currently Unemployed: No Education: High School Diploma/GED Difficulty w/ Childcare or Family Care: No Occupation/Education: retired Gender identity (if verbalized by the patient): Female Spiritual care concerns: No Same Day Admit/Disch: Med Pre-admit Medications Home Medications Medication Instructions Recorded Confirmed Type acetaminophen 500 mg tablet 500 mg PO Q6H PRN Pain 07/25/23 10/06/23 History bisacodyl 5 mg tablet 5 mg PO .COMPLEX 07/25/23 10/06/23 History capsaicin 0.075 % topical cream 1 applic topical BID 07/25/23 10/06/23 History cetirizine 10 mg tablet (Zyrtec) 10 mg PO DAILY 07/25/23 10/06/23 History fluticasone propionate 50 1 spray intranasal DAILY 07/25/23 10/06/23 History mcg/actuation nasal spray,suspension gabapentin 300 mg capsule 300 mg PO TID 07/25/23 10/06/23 History polyethylene glycol 3350 17 gram 17 g PO DAILY PRN Constipation 07/25/23 10/06/23 History oral powder packet tramadol 50 mg tablet 50 mg PO Q6H PRN Pain 07/25/23 10/06/23 History venlafaxine 37.5 mg tablet 37.5 mg PO DAILY 07/25/23 10/06/23 History amiodarone 100 mg tablet 100 mg PO DAILY #30 tabs 10/06/23 Rx calcium carbonate 500 mg calcium 500 mg PO BID 10/06/23 10/06/23 History (1,250 mg) tablet cholecalciferol (vitamin D3) 10 15 mcg PO BID 10/06/23 10/06/23 History mcg (400 unit) tablet Review of Systems Review of Systems tachycardia, Influenza A, All systems reviewed & are unremarkable except as noted in HPI and below Exam Narrative: healthy , Well Const: General: cooperative, well developed, alert, awake and Physically active Nutritional Appearance: average body habitus Orientation/consciousness: oriented to person, o
--- NOTE | 2023-10-06 10:15 | ECG_ITS ---
Measurements Intervals [place] Rate: 84 P: -86 NE: 117 QRS: 136 QRSD: 85 T: 141 QT: 412 QTc: 488 Interpretive Statements ECTOPIC ATRIAL TACHYCARDIA ARM LEAD REVERSAL IS PRESENT COMPARED TO ECG 10/05/2023 18:34:14 ARM LEAD REVERSAL IS PRESENT Electronically Signed On 10-07-2023 14:16:28 PROCESSING ENGINEER by Omar Gaston M.D.
[2023-10-06 12:00] VITALS: PULSE 88
[2023-10-06] MEDS: VENLAFAXINE HCL 37.5 MG TABLET PO (12:51)
[2023-10-06] MEDS: GABAPENTIN 300 MG CAPSULE PO (12:51)
[2023-10-06] MEDS: LORATADINE 10 MG TABLET PO (12:51)
--- NOTE | 2023-10-09 09:05 | PC.NURSE ---
Discharged back to nrusing home with hard copy instructions and faxed instructions, no questions
== END 2023-10-06 14:05 | disposition home or self-care (01) ==
LOC: CHSED 16:48 → CHS2ND 20:48
PROVIDERS: Admitting Provider Internal Medicine; Emergency Provider Family Medicine; PCP Family Medicine; Visit Provider Internal Medicine
DX: J10.1 Influenza due to other identified influenza virus with other respiratory manifestations (principal); I47.19 Other supraventricular tachycardia; E11.9 Type 2 diabetes mellitus without complications; N11.1 Chronic obstructive pyelonephritis; R94.31 Abnormal electrocardiogram [ECG] [EKG]; F32.A Depression, unspecified; I10 Essential (primary) hypertension; Z20.822 Contact with and (suspected) exposure to COVID-19; K08.9 Disorder of teeth and supporting structures, unspecified; M25.461 Effusion, right knee; M17.11 Unilateral primary osteoarthritis, right knee; M21.061 Valgus deformity, not elsewhere classified, right knee; K59.00 Constipation, unspecified; Z87.891 Personal history of nicotine dependence; Z79.1 Long term (current) use of non-steroidal anti-inflammatories (NSAID); Z79.891 Long term (current) use of opiate analgesic; Z79.899 Other long term (current) drug therapy; Z83.3 Family history of diabetes mellitus; Z82.49 Family history of ischemic heart disease and other diseases of the circulatory system
CPT/HCPCS: 36415; 71045; 80048; 80053; 81001; 83880; 84484; 85025; 87637; 93005; 96361; 96365; 96366; 96372; 96374; 96375; 96376; 99285; A9270; G0378; J0282; J1650; J2405; J7040

== ENCOUNTER 2023-11-24 10:06 | Outpatient (CLI) | payer MEDICARE, MEDICAID, SELFPAY ==
--- NOTE | ~2023-11-24 | XR_ITS ---
EXAM: XR knee RT 3V DATE: 11/24/2023 12:25 HISTORY: post lat pain x 3 years, NKI . COMPARISON: 04/19/2023. FINDINGS: Decreased mineralization. No fracture or dislocation. No lytic or blastic lesion. Severe l ateral compartment narrowing. Moderate tricompartmental osteophytosis. Exaggerated valgus alignment. Quadriceps enthesopathy. Loose joint bodies in posterior and lateral joint recesses. No erosion or pe riosteal change. Vascular calcifications. IMPRESSION: Tricompartmental right knee arthritis, severe in the lateral compartment, with loose join t bodies. Reviewed, dictated and finalized at location K. RUMENT REPAIR SUPERVISOR IMPRESSION: Tricompartmental right knee arthritis, severe in the lateral compar tment, with loose joint bodies.
== END 2023-11-24 10:07 | disposition home or self-care (01) ==
PROVIDERS: PCP Family Medicine; Visit Provider Family Medicine
DX: M17.11 Unilateral primary osteoarthritis, right knee (principal); M23.41 Loose body in knee, right knee; M25.561 Pain in right knee
CPT/HCPCS: 73562

== ENCOUNTER 2023-12-06 07:54 | Outpatient (NON) | payer MEDICARE, SELFPAY ==
[2023-12-06 08:11] LABS: Basophils Absolute Auto 0.06 K/mm3 (0.00-0.10); Basophils Percent Auto 0.5 % (0.0-1.0); Eosinophils Absolute Auto 0.47 K/mm3 (0.02-0.50); Eosinophils Percent Auto 3.7 % (1.0-6.0); Hematocrit 40.3 % (35.0-42.0); Hemoglobin 12.3 g/dL (11.7-13.8); Immature Granulocyte Absolute 0.12 K/mm3 (0.00-0.00); Immature Granulocyte Percent A 0.9 % (0.0-0.0); Lymphocytes Absolute Auto 3.37 K/mm3 (1.10-4.50); Lymphocytes Percent Auto 26.2 % (18.0-42.0); Mean Corpuscular HGB Conc 30.5 g/dL (32.0-36.0); Mean Corpuscular Hemoglobin 24.2 pg (27.0-31.0); Mean Corpuscular Volume 79.2 fL (78.0-102.0); Mean Platelet Volume 11.8 fl (9.2-11.8); Monocytes Absolute Auto 0.94 K/mm3 (0.10-0.90); Monocytes Percent Auto 7.3 % (2.0-11.0); Neutrophils Absolute Auto 7.9 K/mm3 (1.7-7.2); Neutrophils Percent Auto 61.4 % (50.0-70.0); Platelet Count Result 316 K/mm3 (150-420); Red Blood Count 5.09 M/mm3 (4.20-5.40); Red Cell Distribution Width 15.2 % (11.6-14.4); White Blood Count 12.9 K/mm3 (4.8-10.8)
[2023-12-06 08:25] LABS: Hemoglobin A1C 6.3 % (<5.7)
[2023-12-06 08:43] LABS: Alanine Aminotransferase 19 U/L (14-59); Albumin Level 3.3 g/dL (3.4-5.0); Alkaline Phosphatase 90 U/L (46-116); Anion Gap 13 mmol/L (8-16); Aspartate Amino Transferase 13 U/L (15-37); Bilirubin,Total 0.6 mg/dL (0.00-1.00); Blood Urea Nitrogen 19 mg/dL (7-18); Calcium 8.7 mg/dL (8.5-10.1); Carbon Dioxide 24 mmol/L (21-32); Chloride 100 mmol/L (98-108); Estimated Glomerular Filt Rate > 60; Glucose 136 mg/dL (70-99); Osmolality Calculated 288 mOsm/kg (285-295); Potassium 4.6 mmol/L (3.5-5.1); Sodium 137 mmol/L (136-145); Total Protein 6.9 g/dL (6.4-8.2); Uric Acid 7.2 mg/dL (2.6-6.0)
== END 2023-12-06 07:55 | disposition home or self-care (01) ==
LOC: CHSLAB 07:56
PROVIDERS: PCP Family Medicine; Visit Provider Family Medicine
DX: E11.9 Type 2 diabetes mellitus without complications (principal); M10.00 Idiopathic gout, unspecified site; E27.9 Disorder of adrenal gland, unspecified; N11.1 Chronic obstructive pyelonephritis
CPT/HCPCS: 36415; 80053; 83036; 84550; 85025

== ENCOUNTER 2024-04-28 07:36 | Outpatient (CLI) | payer MEDICARE, SELFPAY ==
--- NOTE | 2024-04-28 07:46 | EST_ITS ---
Patient Info Name: Sherlyn Long Age: 69 years : 1955 Gender: Female Ht: 62 in Wt: 164 lbs BSA: 1.83 m2 HR: 82 bpm BP: 164 / 87 mmHg Heart Rhythm: Sinus Rhythm Technical Quality: Good Exam Date: 04/28/2024 9:38 AM Exam Location: Echo Lab Patient Status: Outpatient Admit Date: 04/28/2024 Staff Ordering Physician: Dmitry Mooney MD Attending Provider: Edwar Rahman NMAA Exam Type: CA stress lizzie w NM Study Info A regadenoson stress test was performed. History/Risk Factors Hypertension: Yes Dyslipidemia: Yes Diabetes Mellitus: Type II Summary 1. 1. Negative lexiscan stress test for ischemic ST changes by ECG criteria. 2. 2. Baseline hypertension. 3. 3. Nuclear scan to follow and will be reported separately. Please correlate with it. Protocol: LEXISCAN Stress ECG Details Stage: REST Duration (min): 2 min : 7 sec HR (bpm): 85 SBP (mmHg): 164 DBP (mmHg): 87 Stage: REST Duration (min): 5 min : 3 sec HR (bpm): 85 SBP (mmHg): 164 DBP (mmHg): 87 Stage: STAGE 1 Duration (min): 0 min : 19 sec HR (bpm): 85 SBP (mmHg): 164 DBP (mmHg): 87 Stage: RECOVERY Duration (min): 0 min : 40 sec HR (bpm): 103 SBP (mmHg): 164 DBP (mmHg): 87 Stage: RECOVERY Duration (min): 1 min : 40 sec HR (bpm): 104 SBP (mmHg): 164 DBP (mmHg): 87 Stage: RECOVERY Duration (min): 2 min : 40 sec HR (bpm): 99 SBP (mmHg): 159 DBP (mmHg): 80 Stage: RECOVERY Duration (min): 3 min : 25 sec HR (bpm): 95 SBP (mmHg): 148 DBP (mmHg): 79 Stage: RECOVERY Duration (min): 3 min : 40 sec HR (bpm): 95 SBP (mmHg): 148 DBP (mmHg): 80 Stage: RECOVERY Duration (min): 4 min : 40 sec HR (bpm): 95 SBP (mmHg): 148 DBP (mmHg): 80 Stage: RECOVERY Duration (min): 5 min : 40 sec HR (bpm): 97 SBP (mmHg): 148 DBP (mmHg): 79 Stage: RECOVERY Duration (min): 6 min : 24 sec HR (bpm): 90 SBP (mmHg): 148 DBP (mmHg): 79 Rest HR: 85 bpm Peak HR: 105 bpm Rest Sys BP: 164 mmHg Peak Sys BP: 159 mmHg Max Pred HR: 149 bpm % Max Pred HR: 70 % Target HR: 127 bpm Max RPP: 16,695 bpm*mmHg BP Response: Normal blood pressure response Termination Reason: Completed Protocol Cardiac Symptoms: None Total Time: 0 min : 19 sec Rest Rodriguez BP: 87 mmHg Peak Rodriguez BP: 80 mmHg Total Dose: 0.4 mg Resting ECG sinus rhythm with occasional PVCs. Stress ECG No abnormal ST/T wave changes. Arrhythmias Occasional PVCs. Report Signatures
--- NOTE | 2024-04-28 13:11 | WPDCARIOSTRE ---
Nuclear Stress Test INDICATIONS Indications: Abnormal EKG PROCEDURE Procedure Performed: Myocardial Perf Spect-Multi Procedure: Patient underwent a lexiscan stress test and immediately was injected with 29.1 mCi of cardiolyte. Multiple tomographic images were obtained. These are of good quality. There is evidence of a moderate size, moderate severity inferolateral perfusion defect with stress imaging. A separate resting images were obtained after patient was injected with 10.2 mCi of cardiolyte. Multiple tomographic images were obtained. These are of good quality. There is evidence of a moderate size, moderate severity inferolateral perfusion defect with rest imaging. CONCLUSION Conclusion: 1. Myocardial perfusion imaging demonstrating a fixed moderate size inferolateral perfusion defect suggestive diaphragmatic attenuation artifact. 2. No evidence of reversible ischemia. 3. Left ventriculogram demonstrates normal measured ejection fraction of 81% with no wall motion abnormalities. 4. TID score 0.79 is normal.
== END 2024-04-28 07:37 | disposition home or self-care (01) ==
LOC: CHSCARD 07:38
PROVIDERS: PCP Family Medicine; Visit Provider Family Medicine
DX: R94.31 Abnormal electrocardiogram [ECG] [EKG] (principal)
CPT/HCPCS: 78452; 93017; A9502; J2785

== ENCOUNTER 2024-06-11 08:58 | Outpatient (CLI) | payer MEDICARE, SELFPAY ==
--- NOTE | ~2024-06-11 | XR_ITS ---
Right Knee Technique: AP, lateral, and sunrise views were obtained. Clinical History: Pain, prior arthroplasty Findings: No fracture or dislocation is seen. Right knee arthroplasty in place, without evidence of h ardware complication.. Mild prepatellar soft tissue edema is present. No joint effusion is seen. Impression: Right knee arthroplasty in place. No hardware complication. Prepatellar/irregular nodular soft tissue edema, presumably postoperative in nature. Correlate clinic ally. Reviewed, dictated and finalized at location M. Impression: Right knee arthroplasty in place. No hardware complication. Prepatellar/irregular nodular soft tissue edema, presumably postoperative in na ture. Correlate clinically.
== END 2024-06-11 08:59 | disposition home or self-care (01) ==
PROVIDERS: PCP Family Medicine; Visit Provider Family Medicine
DX: M25.561 Pain in right knee (principal); Z96.651 Presence of right artificial knee joint; M79.89 Other specified soft tissue disorders
CPT/HCPCS: 73562

== ENCOUNTER 2024-12-30 09:05 | Outpatient (CLI) | payer MEDICARE, SELFPAY ==
[2024-12-30 09:18] LABS: Basophils Absolute Auto 0.06 K/mm3 (0.00-0.10); Basophils Percent Auto 0.6 % (0.0-1.0); Eosinophils Absolute Auto 0.47 K/mm3 (0.02-0.50); Hemoglobin 11.5 g/dL (11.7-13.8); Immature Granulocyte Absolute 0.07 K/mm3 (0.00-0.00); Immature Granulocyte Percent A 0.7 % (0.0-0.0); Lymphocytes Absolute Auto 2.42 K/mm3 (1.10-4.50); Lymphocytes Percent Auto 25.5 % (18.0-42.0); Mean Corpuscular HGB Conc 30.3 g/dL (32-36); Mean Corpuscular Hemoglobin 24.7 pg (27.0-31.0); Mean Corpuscular Volume 81.5 fL (78.0-102.0); Mean Platelet Volume 10.7 fl (9.2-11.8); Monocytes Absolute Auto 0.51 K/mm3 (0.10-0.90); Monocytes Percent Auto 5.4 % (2.0-11.0); Neutrophils Absolute Auto 5.95 K/mm3 (1.70-7.20); Neutrophils Percent Auto 62.8 % (50.0-70.0); Platelet Count Result 331 K/mm3 (150-420); Red Blood Count 4.66 M/mm3 (4.20-5.40); Red Cell Distribution Width 16.4 % (11.6-14.4); White Blood Count 9.5 K/mm3 (4.8-10.8)
[2024-12-30 09:39] LABS: Hemoglobin A1C 6.7 % (<5.7)
[2024-12-30 09:44] LABS: Alanine Aminotransferase 20 U/L (14-59); Albumin Level 3.5 g/dL (3.4-5.0); Alkaline Phosphatase 87 U/L (46-116); Anion Gap 10 mmol/L (4-12); Aspartate Amino Transferase 13 U/L (15-37); Bilirubin,Total 0.3 mg/dL (0.00-1.00); Blood Urea Nitrogen 25 mg/dL (7-18); Calcium 9.2 mg/dL (8.5-10.1); Carbon Dioxide 29 mmol/L (21-32); Chloride 99 mmol/L (98-108); Estimated Glomerular Filt Rate 43; Glucose 194 mg/dL (70-99); Osmolality Calculated 295 mOsm/kg (285-295); Potassium 4.1 mmol/L (3.5-5.1); Sodium 138 mmol/L (136-145); Total Protein 7.7 g/dL (6.4-8.2)
--- OUTSIDE RECORDS SUMMARY | 2024-12-30 09:58 | XMS_ITS | Clinical Summary ---
Author Organization [facility] Address [address] [place] [address] Care Team Providers Care Punchboard Filling Machine Operator Name Role Phone Dmitry Mooney MD Primary Care Provider [phone] Allergies Active Allergy Reactions Criticality Noted Date Comments Sulfa Antibiotics Rash Medium 10/11/2022 Sulfacetamide Unknown 07/20/2015 Medications venlafaxine XR (EFFEXOR-XR) 37.5 MG 24 hr capsule Take 1 capsule (37.5 mg total) by mouth daily. Active fluticasone propionate (FLONASE) 50 MCG/ACT nasal spray 2 sprays by Nasal route daily. Active gabapentin (NEURONTIN) 300 MG capsule Take 1 capsule (300 mg total) by mouth. Active glucosamine-cho ndroitin 500-400 mg Tab tablet Take 1 tablet by mouth daily. Active traMADol (ULTRAM) 50 MG tablet Take 1 tablet (50 mg total) by mouth every 6 (six) hours as needed. Active calcium carbonate-vitam in D (OSCAL + D) 500-5 MG-MCG Tab Take 1 tablet by mouth daily. Active ibuprofen (MOTRIN) 800 MG tablet Take 1 tablet (800 mg total) by mouth every 8 (eight) hours as needed for Pain. 06/18/2024 Active cetirizine (ZYRTEC) 10 MG tablet Take 1 tablet (10 mg total) by mouth daily. Active polyethylene glycol (GLYCOLAX) packet Take 240 mLs (17 g total) by mouth daily. Dissolve powder in 240 mL water Active HYDROcodone-geovani taminophen (NORCO) 5-325 MG tabletIndicatio ns:Acute Pain < 7 Day Supply Take 1 tablet by mouth every 8 (eight) hours as needed for Pain. Indications: Acute Pain < 7 Day Supply 20 tablet 07/29/2024 Active Active Problems Problem Noted Date Diagnosed Date S/P total knee arthroplasty, right 05/26/2024 Primary osteoarthritis of right knee 02/11/2024 Osteochondral defect 07/15/2019 Resolved Problems Problem Noted Date Diagnosed Date Resolved Date Knee osteonecrosis, right (CMS/HCC HHS/HCC) 07/15/2019 05/12/2024 Family History Medical History Relation Comments Cancer Father Anxiety Mother Depression Mother Heart Attack Mother Heart Disease Mother Hypertension Mother Relation Status Comments Father Mother Social History Tobacco Use Types Packs/Day Years Used Date Smoking Tobacco: Former Cigarettes Smokeless Tobacco: Never Tobacco Cessation:Counseling Given: Not Answered Alcohol Use Standard Drinks/Week Comments No 0 (1 standard drink = 0.6 oz pur e alcohol) AUDIT-C Answer Date Recorded Frequency of Alcohol Consumption Never 07/15/2019 Average Number of Drinks Not on file 019 Frequency of Binge Drinking Not on file 05/2019 Comments No Sex and Gender Information Value Date Recorded Sex Assigned at Not on file Legal Sex Female 7:19 PM CDT Gender Identity Not on file Sexual Orientation Not on file Last Filed Vital Signs Vital Sign Reading Time Taken Comments Blood Pressure 175/78 07/14/2024 8:00 AM CDT Pulse 70 07/14/2024 8:00 AM CDT Temperature 35.8 C (96.5 F) 07/14/2024 7:30 AM CDT Respiratory Rate 16 07/14/2024 8:00 AM CDT Oxygen Saturation 98% 07/14/2024 8:00 AM CDT Inhaled Oxygen Concentration - - Weight 74.4 kg (164 lb) 08/18/2024 2:13 PM PLUMBER GASFITTER Height 161.3 cm (5' 3.5 ) 08/18/2024 2:13 PM PLUMBER GASFITTER Body Mass Index 28.6 08/18/2024 2:13 PM PLUMBER GASFITTER Plan of Treatment Health Maintenance Due Date Last Done Comments Colorectal Cancer Screening Colonoscopy (10 Years) 1955 Hepatitis C 1971 Mammogram Screening 1993 Zoster Vaccines (1 of 2) 2003 Annual Medicare Wellness Visit 2018 Dexa Scan (General) 2018 Pneumococcal Vaccine: 65+ Years (2 of 2 - PCV) 2018 08/23/2016 COVID-19 Vaccine (3 - season) 2024 09/04/2022, 06/08/2022 Influenza Adult (#1) 2024 07/14/2019, 07/27/2017, 07/24/2016, Additional history exists RSV Immunization or 60+ Years (1 - 1-dose 75+ series) 01/13/2028 DTaP, Tdap and Td Vaccines (4 - Td or Tdap) 10/19/2032 10/19/2022, 02/22/2017, 03/31/2015 Meningococcal B Vaccine Aged Out No l onger eligible based on patient's age to complete this topic Meningococcal Vaccine Aged Out No juno erlin eligible based on patient's age to complete this topic RSV Immunizations Under 20 Months Aged Out No longer eligible based on patient's age to complete this topic Medical Devices Implanted Type Area Milling Machinist Device Identifier Shelf Expiration Date Model / Serial / Lot Cement Simplex Hv W/Gentamicin - [id number] Implanted:Qty: 1 on 05/12/2024 by Kirk Rao Jr. DO at [facility] Cement Implant Right: Knee [employer] DIV [employer] ISSA [id number] 01/05/2025 [id number] / / [id number] Drill Bit Pin Gerry Headless Trocar - [id number] Implanted:Qty: 1 on 05/12/2024 by Kirk Rao Jr. DO at [facility] Drill Right: Knee [employer] [id number] 03/31/2034 [id number] / / [id number] Component Patellar 32mm Persona Vivacit-E All Poly Knee Sterile Latex Free - [id number] Implanted:Qty: 1 on 05/12/2024 by Kirk Rao Jr. DO at [facility] Knee Components Right: Knee [employer] [id number] 10/25/2028 [id number] / / [id number] Insert Artc 6-7 C-D 11mm Kn Rt Vivacit-E Persona Strl - [id number] Implanted:Qty: 1 on 05/12/2024 by Kirk Rao Jr., DO at [facility] Knee Components Right: Knee [employer] [id number] 05/28/2028 [id number] / / [id number] Screw Guide 25mm 2.5mm Persona Knee Female Hex Sterile - [id number] Implanted:Qty: 1 on 05/12/2024 by Kirk Rao Jr., DO at [facility] Screw Right: Knee [employer] [id number] 01/26/2033 [id number] / / [id number] Persona Revision Hex Headed Screw Implanted:Qty: 1 on 05/12/2024 by Krik Rao Jr., DO at [facility] Right: Knee [employer] [id number] 05/13/2033 [id number] / / [id number] Persona The Personalized Knee System Cruciate Retaining Implanted:Qty: 1 on 05/12/2024 by Kirk Rao Jr., DO at [facility] Right: Knee [employer] [id number] 12/11/2032 [id number] / / [id number] Persona The Personalized Knee System Spiked Keel Implanted:Qty: 1 on 05/12/2024 by Kirk Rao Jr., DO at [facility] Right: Knee [employer] [id number] 03/05/2034 [id number] / / [id number] Insurance [facility] Advance Directives Documents on File Type Date Recorded Patient Rn Infusion Expl anation Advance Directives and Livin g Will 05/13/2024 8:34 AM Care Teams Punchboard Filling Machine Operator Relationship Specialty Start Date End Date Dmitry Mooney MD [address] [place] [address] PCP - General FAMILY PRACTICE 07/15/19
--- OUTSIDE RECORDS SUMMARY | 2024-12-30 09:58 | XMS_ITS | Clinical Summary ---
Author Organization [facility] Address [address] [place] [address] Care Team Providers Care Staff Veterinarian Name Role Phone Dmitry Mooney MD Primary Care Provider [phone] [facility],non-owned Affiliates and Associated Physician Practices is amultiple site organization consisting of ambulatory clinics and hospital sitesin [place], [place], [place] and [place]. This disclosure is being madepursuant to the Care Everywhere program and may not contain all information available regarding this patient. Last updated 18.[facility] Allergies Active Allergy Reactions Criticality Noted Date Comments Sulfa Drugs Rash Medium 10/11/2022 Medications * Be aware that medications may not be up to date on this document. Alwaysverify current medications with the patient. Medication Sig Dispensed Refills Start Date End Date Status fluticasone propionate (Flonase) 50 MCG/ACT nasal spray Terry 2 (two) sprays into each nostril once daily Active gabapentin (Neurontin) 300 MG capsule Take 1 (one) capsule by mouth at bedtime Active loratadine (Claritin) 10 MG tablet Take 1 (one) tablet by mouth once daily Active venlafaxine (Effexor) 37.5 MG tablet Take 1 (one) Half Tablet by mouth once daily Active glucosamine-chondroiti n 500-400 MG tablet Take 1 (one) tablet by mouth once daily Active traMADol (Ultram) 50 MG tablet Take 1 (one) tablet by mouth every 6 hours as needed for Pain Active Active Problems Problem Noted Date Diagnosed Date Nephrolithiasis 12/12/2022 Pyelonephritis 10/11/2022 Elevated serum creatinine 10/11/2022 Adrenal mass, left 10/11/2022 Ureteral stone with hydronephrosis 10/11/2022 Closed displaced fracture of left patella, unspecified fracture morphology, initial encounter 10/11/2022 Immunizations Name Administration Dates Next Due TDAP (7yrs+) 10/19/2022 Family History Medical History Relation Name Comments Cancer - Esophageal Father Cancer - Lung Father CAD (Coronary Artery Disease) Mother Relation Name Status Comments Father Mother Social History Tobacco Use Types Packs/Day Years Used Date Smoking Tobacco: Former Cigarettes Q uit: 04/2022 Smokeless Tobacco: Never Tobacco Cessation:Counseling Given: Not Answered Alcohol Use Standard Drinks/Week Comments Not Currently 0 (1 standard drink = 0.6 oz pur e alcohol) AUDIT-C Answer Date Recorded Q1: How often do you have a drink containing alcohol? Never 10/11/2022 Q2: How many drinks containi ng alcohol do you have on a typical day when you are drinking? Patient does not drink Q3: How often do you have si x or more drinks on one occasion? Never 10/11/2022 Sex and Gender Information Value Date Recorded Sex Assigned at Not on file Gender Identity Not on file Sexual Orientation Not on file Last Filed Vital Signs Vital Sign Reading Time Taken Comments Blood Pressure 110/69 12/12/2022 2:44 PM OCCUPATIONAL THERAPY MANAGER Pulse 108 12/12/2022 2:44 PM OCCUPATIONAL THERAPY MANAGER Temperature 36.6 C (97.9 F) 12/12/2022 2:44 PM OCCUPATIONAL THERAPY MANAGER Respiratory Rate 18 12/01/2022 12:13 PM OCCUPATIONAL THERAPY MANAGER Oxygen Saturation 97% 12/12/2022 2:44 PM OCCUPATIONAL THERAPY MANAGER Inhaled Oxygen Concentration - - Weight 57.6 kg (127 lb) 12/12/2022 2:44 PM OCCUPATIONAL THERAPY MANAGER Height 160 cm (5' 3 ) 12/12/2022 2:44 PM OCCUPATIONAL THERAPY MANAGER Body Mass Index 22.5 12/12/2022 2:44 PM OCCUPATIONAL THERAPY MANAGER Plan of Treatment Health Maintenance Due Date Last Done Comments BONE DENSITY TESTING 1955 COLOGUARD (AGES 45-75) - COL ON CA SCREENING 1955 COLON MONITORING 1955 COLONOSCOPY - COLON CA SCREENING 1955 CT COLONOGRAPHY - COLON CA SCREENING 1955 Colorectal Cancer Screening 1955 FIT - COLON CA SCREENING 1955 FLEX SIG - COLON CA SCREENING 1955 LIPID TESTING 1955 MAMMOGRAM 1955 HEPATITIS C SCREENING 01/08/1971 PNEUMOCOCCAL VACCINE 50+ (1 of 1 - PCV) 2003 ZOSTER VACCINE (1 of 2) 2003 COVID-19 VACCINE (1 - 2023-2 5 season) 2024 INFLUENZA VACCINE (#1) 2024 DEPRESSION SCREENING 10/08/2024 MEDICARE AWV CALENDAR YEAR 2024 Respiratory Syncytial Virus (RSV) Vaccine Pt: or over 60 yrs (1 - 1-dose 75+ series) 01/13/2028 DTAP/TDAP/TD VACCINES (2 - T d or Tdap) 10/19/2032 10/19/2022 HEPATITIS B VACCINE Aged Out No longe r eligible based on patient's age to complete this topic HIB VACCINE Aged Out No longer eligi ble based on patient's age to complete this topic HPV VACCINE Aged Out No longer eligi ble based on patient's age to complete this topic MENINGOCOCCAL (Group B) VACC INE SHARED DECISION-MAKING Aged Out No longer eligibl e based on patient's age to complete this topic MENINGOCOCCAL GROUPS A/C/Y/W VACCINE Aged Out No longer eligible b ased on patient's age to complete this topic Medical Devices Implanted Type Area Supervisor Aircraft Cleaning Device Identifier Shelf Expiration Date Model / Serial / Lot Stent Uret Tria Sft 6fr 22cm W Sh Implanted:Qty: 1 on 10/12/2022 by Kervin Mireles MD at [facility] Right: Ureter [employer] Shannan [id number] / / Stent Uret 6fr 24cm Sft Tria Implanted:Qty: 1 on 11/30/2022 by Abhay Be MD at [facility] Right: Ureter [employer] Shannan 08/09/2025 [id number] / / [id number] Advance Directives Documents on File Type Date Recorded Patient Label Operator Expl anation Adv Directive/Living Will/POA 10/16/2022 4:50 PM [facility] [employer] * Full Code (Latest Code Status on File) Date Activated Date Inactivated Comments 11/30/2022 11:42 AM 12/01/2022 2:28 PM * LIMITED RESUSCITATION-PRIOR AND AFTER ARREST Date Activated Date Inactivated Comments 10/11/2022 10:58 PM 10/20/2022 2:06 PM Question Answer Comments Limited Resuscitation: No Chest Compress ionNo Intubation, No Invasive Ventilation * Full Code Date Activated Date Inactivated Comments 10/11/2022 9:29 PM 10/11/2022 10:58 PM Care Teams Staff Veterinarian Relationship Specialty Start Date End Date Dmitry Mooney MD [address] [place] [id number] PCP - General 12/07/22
[2024-12-31 17:09] LABS: Ferritin 220 ng/mL (8-252); Iron 51 ug/dL (50-170); Percent Iron Saturation 16 % (12-57)
== END 2024-12-30 09:06 | disposition home or self-care (01) ==
LOC: CHSLAB 09:06
PROVIDERS: PCP Family Medicine; Visit Provider Family Medicine
DX: E11.42 Type 2 diabetes mellitus with diabetic polyneuropathy (principal); I10 Essential (primary) hypertension; E27.9 Disorder of adrenal gland, unspecified; M17.11 Unilateral primary osteoarthritis, right knee
CPT/HCPCS: 36415; 80053; 82728; 83036; 83540; 83550; 85025

== ENCOUNTER 2025-01-01 08:31 | Outpatient (CLI) | payer MEDICARE, SELFPAY ==
[2025-01-01 09:23] LABS: Alanine Aminotransferase 30 U/L (14-59); Albumin Level 3.4 g/dL (3.4-5.0); Alkaline Phosphatase 82 U/L (46-116); Aspartate Amino Transferase 11 U/L (15-37); Bilirubin Direct 0.1 mg/dL (0-0.2); Bilirubin,Total 0.3 mg/dL (0.00-1.00); Total Protein 7.4 g/dL (6.4-8.2)
== END 2025-01-01 08:32 | disposition home or self-care (01) ==
LOC: CHSLAB 08:33
PROVIDERS: PCP Family Medicine; Visit Provider Family Medicine
DX: N11.1 Chronic obstructive pyelonephritis (principal); E11.42 Type 2 diabetes mellitus with diabetic polyneuropathy; I10 Essential (primary) hypertension
CPT/HCPCS: 36415; 80076

== ENCOUNTER 2025-04-14 15:27 | Outpatient (CLI) | payer MEDICARE, SELFPAY ==
--- OUTSIDE RECORDS SUMMARY | 2025-04-14 15:29 | XMS_ITS | Clinical Summary ---
Author Organization [facility] Address [address] [place] [address] Care Team Providers Care Surgery Center Administrator Name Role Phone Dmitry Mooney MD Primary Care Provider [phone] Source Comments [facility],non-owned Affiliates and Associated Physician Practices is amultiple site organization consisting of ambulatory clinics and hospital sitesin [place], [place], [place] and [place]. This disclosure is being madepursuant to the Care Everywhere program and may not contain all information available regarding this patient. Last updated 18.[facility] Allergies Active Allergy Reactions Criticality Noted Date Comments Sulfa Drugs Rash Medium 10/11/2022 Medications * Be aware that medications may not be up to date on this document. Alwaysverify current medications with the patient. fluticasone propionate (Flonase) 50 MCG/ACT nasal spray Jermyn 2 (two) sprays into each nostril once daily Active gabapentin (Neurontin) 300 MG capsule Take 1 (one) capsule by mouth at bedtime Active loratadine (Claritin) 10 MG tablet Take 1 (one) tablet by mouth once daily Active venlafaxine (Effexor) 37.5 MG tablet Take 1 (one) Half Tablet by mouth once daily Active glucosamine-cho ndroitin 500-400 MG tablet Take 1 (one) tablet [...] unspecified fracture morphology, initial encounter 10/11/2022 Immunizations Immunization Administration Dates Next Due TDAP (7yrs+) 10/19/2022 [...] more drinks on one occasion? Never 10/11/2022 Comments Unknown Sex and Gender Information Value Date Recorded Sex Assigned at Not on file Legal Sex Female 4:25 PM FELLER HAND Gender Identity Not on file Sexual Orientation Not on file Last Filed Vital Signs Vital Sign Reading Time Taken Comments Blood Pressure 110/69 12/12/2022 2:44 PM FELLER HAND Pulse 108 12/12/2022 2:44 PM FELLER HAND Temperature 36.6 C (97.9 F) 12/12/2022 2:44 PM FELLER HAND Respiratory Rate 18 12/01/2022 12:13 PM FELLER HAND Oxygen Saturation 97% 12/12/2022 2:44 PM FELLER HAND Inhaled Oxygen Concentration - - Weight 57.6 kg (127 lb) 12/12/2022 2:44 PM FELLER HAND Height 160 cm (5' 3) 12/12/2022 2:44 PM FELLER HAND Body Mass Index 22.5 12/12/2022 2:44 PM FELLER HAND Plan of Treatment Health Maintenance Due Date [...] VACCINE (1 - 2023-2 5 season) 2024 DEPRESSION SCREENING 10/08/2024 MEDICARE AWV CALENDAR YEAR 2024 INFLUENZA VACCINE (#1) 2025 Respiratory Syncytial Virus (RSV) Vaccine Pt: or [...] this topic Medical Devices Implanted Type Area Medtronics Technician Device Identifier Shelf Expiration Date Model / Serial / Lot Stent Uret Tria Sft 6fr 22cm W Sh Implanted:Qty: 1 on 10/12/2022 by Kervin Mireles MD at [facility] Right: Ureter [employer] Shannan [id number] / / Stent Uret 6fr 24cm Sft Tria Implanted:Qty: 1 on 11/30/2022 by Abhay Be MD at [facility] Right: Ureter [employer] Shannan 08/09/2025 [id number] / / [id number] Insurance [facility] MANAGED MEDICARE ADV [facility] MANAGED MEDICARE ADV [facility] Advance Directives Documents on File Type Date Recorded Patient Freelance Operator Expl anation Adv Directive/Living Will/POA 10/16/2022 4:50 PM [facility] * Full Code (Latest Code Status on [...] 9:29 PM 10/11/2022 10:58 PM Care Teams Surgery Center Administrator Relationship Specialty Start Date End Date Dmitry Mooney MD [address] [place] [address] PCP - General 12/07/22
--- OUTSIDE RECORDS SUMMARY | 2025-04-14 15:29 | XMS_ITS | Clinical Summary ---
Author Organization [facility] Address [address] [place] [address] Care Team Providers Care Hoop Driving Machine Operator Helper Name Role Phone Dmitry Mooney MD Primary Care Provider [phone] Allergies Active Allergy Reactions Criticality Noted Date [...] 74.4 kg (164 lb) 08/18/2024 2:13 PM AUTOMATED CUTTING MACHINE OPERATOR Height 161.3 cm (5' 3.5) 08/18/2024 2:13 PM AUTOMATED CUTTING MACHINE OPERATOR Body Mass Index 28.6 08/18/2024 2:13 PM AUTOMATED CUTTING MACHINE OPERATOR Plan of Treatment Health Maintenance Due Date Last Done Comments Colorectal Cancer Screening Colonoscopy (10 Years) 1953 Hepatitis C 1971 Mammogram Screening 1993 Zoster Vaccines (1 of 2) 2003 Pneumococcal Vaccine: 50+ Years (2 of 2 - PCV) 08/23/2017 08/23/2016 Annual Medicare Wellness Visit 2018 Dexa Scan (General) 2018 COVID-19 Vaccine (3 - 2023-2 5 season) 2024 09/04/2022, 06/08/2022 RSV Immunization or 60+ Years (1 - 1-dose 75+ series) 01/13/2028 DTaP, Tdap and Td Vaccines ( 4 - Td or Tdap) 10/19/2032 10/19/2022, 02/22/2017, 03/31/2015 Meningococcal B Vaccine Aged Out No l onger eligible based on patient's age to complete this topic Meningococcal Vaccine Aged Out No juno erlin eligible based on patient's age to complete this topic RSV Immunizations Under 20 Months Aged Out No longer eligible b ased on patient's age to complete this topic Goals Goal Patient Goal Type Associated Problems Recent Progress Patient-Stated? Author Autogenerat ed Goal Care Plan Autogenerated Problem No Hannah Lazar, RN Medical Devices Implanted Type Area Grease Remover Device Identifier Shelf Expiration Date Model / Serial / Lot Cement Simplex Hv W/Gentamicin - [id number] Implanted:Qty: 1 on 05/12/2024 by Kirk Rao Jr., DO at [facility] Cement Implant Right: Knee [employer] DIV MARYSOL ISSA [id number] 01/05/2025 6195-1-010 / / [id number] Drill Bit Pin Gerry Headless Trocar - [id number] Implanted:Qty: 1 on 05/12/2024 by Kirk Rao Jr., DO at [facility] Drill Right: Knee [employer] [id number] 03/31/2034 [id number] / / [id number] Component Patellar 32mm Persona Vivacit-E All Poly Knee Sterile Latex Free - [id number] Implanted:Qty: 1 on 05/12/2024 by Kirk aRo Jr., DO at [facility] Knee Components Right: Knee [employer] [id number] 10/25/2028 [id number] / / [id number] Insert Artc 6-7 C-D 11mm Kn Rt Vivacit-E Persona Strl - [id number] Implanted:Qty: 1 on 05/12/2024 by Kirk Rao Jr., DO at [facility] Knee Components Right: Knee [employer] [id number] 05/28/2028 [id number] / / [id number] Screw Guide 25mm 2.5mm Persona Knee Female Hex Sterile - [id number] Implanted:Qty: 1 on 05/12/2024 by Kirk Rao Jr., DO at [facility] Screw Right: Knee [employer] [id number] 01/26/2033 [id number] / / [id number] Persona Revision Hex Headed Screw Implanted:Qty: 1 on 05/12/2024 by Kirk Rao Jr., DO at [facility] Right: Knee [employer] [id number] 05/13/2033 [id number] 48 / / [id number] Persona The Personalized Knee System Cruciate Retaining Implanted:Qty: 1 on 05/12/2024 by Kirk Rao Jr., DO at [facility] Right: Knee [employer] [id number] 12/11/2032 [id number] / / [id number] Persona The Personalized Knee System Spiked Keel Implanted:Qty: 1 on 05/12/2024 by Kirk Rao Jr., DO at [facility] Right: Knee [employer] [id number] 03/05/2034 [id number]- 02 / / [id number] Additional Health Concerns Active Problems Noted Date Diagnosed Date Autogenerated Problem 03/08/2025 Insurance [facility] Advance Directives Documents on File Type Date Recorded Patient Printing Technician Expl anation Advance Directives and Livin g Will 05/13/2024 8:34 AM Care Teams Hoop Driving Machine Operator Helper Relationship Specialty Start Date End Date Dmitry Mooney MD [address] [place] [address] PCP - General FAMILY PRACTICE 07/15/19
[2025-04-14 15:56] LABS: Hemoglobin A1C 7.6 % (<5.7)
== END 2025-04-14 15:28 | disposition home or self-care (01) ==
LOC: CHSLAB 15:28
PROVIDERS: PCP Family Medicine; Visit Provider Family Medicine
DX: E11.9 Type 2 diabetes mellitus without complications (principal)
CPT/HCPCS: 36415; 83036

== ENCOUNTER 2025-04-30 08:49 | Outpatient (CLI) | payer MEDICARE, SELFPAY ==
--- OUTSIDE RECORDS SUMMARY | 2025-04-30 08:54 | XMS_ITS | Clinical Summary ---
Author Organization [facility] Address [address] [place] [address] Care Team Providers Care Flap Lining Binder Name Role Phone Dmitry Mooney MD Primary Care Provider [phone] Source Comments [facility],non-owned Affiliates and Associated Physician Practices is amultiple site organization consisting of ambulatory clinics and hospital sitesin [place], [place], [place] and [place]. This disclosure is being madepursuant to the Care Everywhere program and may not contain all information available regarding this patient. Last updated 18.[facility] Allergies Active Allergy Reactions Criticality Noted Date Comments Sulfa Drugs Rash Medium 10/11/2022 Medications * Be aware that medications may not be up to date on this document. Alwaysverify current medications with the patient. fluticasone propionate (Flonase) 50 MCG/ACT nasal spray [place] 2 (two) sprays into each nostril once [...] on file Legal Sex Female 4:25 PM RN INTENSIVE CARE UNIT Gender Identity Not on file Sexual Orientation Not on file Last Filed Vital Signs Vital Sign Reading Time Taken Comments Blood Pressure 110/69 12/12/2022 2:44 PM RN INT[facility]ARE UNIT Pulse 108 12/12/2022 2:44 PM RN INTENSIVE CARE UNIT Temperature 36.6 C (97.9 F) 12/12/2022 2:44 PM RN INTENSIVE CARE UNIT Respiratory Rate 18 12/01/2022 12:13 PM RN INTENSIVE CARE UNIT Oxygen Saturation 97% 12/12/2022 2:44 PM RN INTENSIVE CARE UNIT Inhaled Oxygen Concentration - - Weight 57.6 kg (127 lb) 12/12/2022 2:44 PM RN INTENSIVE CARE UNIT Height 160 cm (5' 3) 12/12/2022 2:44 PM RN INTENSIVE CARE UNIT Body Mass Index 22.5 12/12/2022 2:44 PM RN INTENSIVE CARE UNIT Plan of Treatment Health Maintenance Due Date [...] this topic Medical Devices Implanted Type Area Nutrition Therapist Device Identifier Shelf Expiration Date Model / Serial / Lot Stent Uret Tria Sft 6fr 22cm W Sh Implanted:Qty: 1 on 10/12/2022 by Kervin Mireles MD at [facility] Right: Ureter [employer] Shannan [id number] / / Stent Uret 6fr 24cm Sft Tria Implanted:Qty: 1 on 11/30/2022 by Abhay Be MD at [facility] Right: Ureter [employer] Shannan 08/09/2025 [id number] / / [id number] Insurance [facility] MEDICARE [facility]V [facility] MEDICARE ADV [facility] Advance Directives Documents on File Type Date Recorded Patient Shove Up Expl anation Adv Directive/Living Will/POA 10/16/2022 4:50 PM [facility] Full Code (Latest Code Status on [...] 9:29 PM 10/11/2022 10:58 PM Care Teams Flap Lining Binder Relationship Specialty Start Date End Date Dmitry Mooney MD [address] [place] [address] PCP - General 12/07/22
--- OUTSIDE RECORDS SUMMARY | 2025-04-30 08:54 | XMS_ITS | Clinical Summary ---
Author Organization [facility] Address [address] [place] [address] Care Team Providers Care Glass Production Machine Operator Name Role Phone Dmitry Mooney MD Primary Care Provider [phone] Allergies Active Allergy Reactions Criticality Noted Date [...] 74.4 kg (164 lb) 08/18/2024 2:13 PM CAGE MANAGER Height 161.3 cm (5' 3.5) 08/18/2024 2:13 PM CAGE MANAGER Body Mass Index 28.6 08/18/2024 2:13 PM CAGE MANAGER Plan of Treatment Health Maintenance Due [...] Lazar, RN Medical Devices Implanted Type Area Payroll Accountant Device Identifier Shelf Expiration Date Model / Serial / Lot Cement Simplex Hv W/Gentamicin - [id number] Implanted:Qty: 1 on 05/12/2024 by Kirk Rao Jr., DO at [facility] Cement Implant Right: Knee [employer] DIV [employer] ISSA [id number] 01/05/2025 6195-1-010 / / [id number] Drill Bit Pin Gerry Headless Trocar - [id number] Implanted:Qty: 1 on 05/12/2024 by Kirk Rao Jr., DO at [facility] Drill Right: Knee [employer] [id number] 03/31/2034 [id number] / / [id number] Component Patellar 32mm Persona Vivacit-E All Poly Knee Sterile Latex Free - [id number] Implanted:Qty: 1 on 05/12/2024 by Kirk Rao Jr., DO at [facility] Knee Components Right: Knee [employer] [id number] 10/25/2028 [id number] / / [id number] Insert Artc 6-7 C-D 11mm Kn Rt Vivacit-E Persona Strl - [id number] Implanted:Qty: 1 on 05/12/2024 by Kirk Rao Jr., DO at [facility] Knee Components Right: Knee [employer] [id number] 05/28/2028 [id number] / / [id number] Screw Guide 25mm 2.5mm Persona Knee Female Hex Sterile - [id number] Implanted:Qty: 1 on 05/12/2024 by Kirk Rao Jr., DO at [facility] Screw Right: Knee [employer] [id number] 01/26/2033 [id number] / / [id number] Persona Revision Hex Headed Screw Implanted:Qty: 1 on 05/12/2024 by Kirk Rao Jr., DO at [facility] Right: Knee [employer] [id number] 05/13/2033 10-3613-819- 48 / / [id number] Persona The Personalized Knee System Cruciate Retaining Implanted:Qty: 1 on 05/12/2024 by Kirk Rao Jr., DO at [facility] Right: Knee [employer] [id number] 12/11/2032 [id number] / / [id number] Persona The Personalized Knee System Spiked Keel Implanted:Qty: 1 on 05/12/2024 by Kirk Rao Jr., DO at [facility] Right: Knee [employer] [id number] 03/05/2034 96-7627-624- 02 / / [id number] Additional Health Concerns Active Problems Noted Date Diagnosed Date Autogenerated Problem 03/08/2025 Insurance [facility] [place] [address] Advance Directives Documents on File Type Date Recorded Patient Government Operations Consultant Expl anation Advance Directives and Livin g Will 05/13/2024 8:34 AM Care Teams Glass Production Machine Operator Relationship Specialty Start Date End Date Dmitry Mooney MD [address] [place] [address] PCP - General FAMILY PRACTICE 07/15/19
[2025-04-30 09:58] LABS: Alanine Aminotransferase 21 U/L (6-35); Albumin Level 4.0 g/dL (3.5-5.1); Alkaline Phosphatase 62 U/L (38-126); Anion Gap 12 mmol/L (4-12); Aspartate Amino Transferase 23 U/L (14-36); Bilirubin,Total 0.5 mg/dL (0.2-1.3); Blood Urea Nitrogen 25 mg/dL (7-17); Calcium 8.8 mg/dL (8.4-10.2); Carbon Dioxide 25 mmol/L (22-30); Chloride 102 mmol/L (98-107); Cholesterol 213 mg/dL (0-200); Estimated Glomerular Filt Rate 50; Glucose 223 mg/dL (65-110); HDL Direct 32 mg/dL; Osmolality Calculated 299 mOsm/kg (285-295); Potassium 4.6 mmol/L (3.4-5.0); Sodium 139 mmol/L (137-145); Total Protein 7.0 g/dL (6.3-8.2); Triglycerides 339 mg/dL (<150)
[2025-04-30 10:11] LABS: Add Urine Microscopic? YES; Appearance Urine Sl Cloudy (Clear); Glucose Urine UA Negative (Negative); Leukocyte Esterase Ur Negative (Negative); Nitrate Urine Negative (Negative); Specific Grav Ur 1.015 (1.010-1.020)
[2025-04-30 10:27] LABS: MALB Creatinine Ratio 27.3 mg/g (0-30)
== END 2025-04-30 08:50 | disposition home or self-care (01) ==
LOC: CHSLAB 08:51
PROVIDERS: PCP Family Medicine; Visit Provider Family Medicine
DX: I10 Essential (primary) hypertension (principal)
CPT/HCPCS: 36415; 80053; 80061; 81001; 82043

== ENCOUNTER 2025-07-15 06:57 | Outpatient (NON) | payer MEDICARE, SELFPAY ==
[2025-07-15 07:25] LABS: Hematocrit 40.2 % (35.0-42.0); Hemoglobin 12.5 g/dL (11.7-13.8); Mean Corpuscular HGB Conc 31.1 g/dL (32-36); Mean Corpuscular Hemoglobin 25.4 pg (27.0-31.0); Mean Corpuscular Volume 81.7 fL (78.0-102.0); Platelet Count Result 231 K/mm3 (150-420); Red Blood Count 4.92 M/mm3 (4.20-5.40); White Blood Count 7.6 K/mm3 (4.8-10.8)
[2025-07-15 07:39] LABS: Alanine Aminotransferase 23 U/L (6-35); Albumin Level 4.2 g/dL (3.5-5.1); Alkaline Phosphatase 86 U/L (38-126); Amylase 51 U/L (30-110); Anion Gap 12 mmol/L (4-12); Aspartate Amino Transferase 29 U/L (14-36); Bilirubin,Total 0.6 mg/dL (0.2-1.3); Blood Urea Nitrogen 41 mg/dL (7-17); Calcium 10.5 mg/dL (8.4-10.2); Carbon Dioxide 27 mmol/L (22-30); Chloride 94 mmol/L (98-107); Cholesterol 212 mg/dL (0-200); Estimated Glomerular Filt Rate 31; HDL Direct 25 mg/dL; Lipase 90 U/L (23-300); Osmolality Calculated 313 mOsm/kg (285-295); Potassium 5.2 mmol/L (3.4-5.0); Sodium 133 mmol/L (137-145); Total Protein 8.1 g/dL (6.3-8.2); Triglycerides 474 mg/dL (<150)
[2025-07-15 07:43] LABS: Hemoglobin A1C 12.8 % (<5.7)
[2025-07-15 07:46] LABS: Glucose 578 mg/dL (65-110)
[2025-07-15 08:10] LABS: Thyroid Stimulating Hormone 0.737 uIU/mL (0.465-4.680)
== END 2025-07-15 06:58 | disposition home or self-care (01) ==
LOC: CHSLAB 06:59
PROVIDERS: Visit Provider Family Medicine
DX: E11.42 Type 2 diabetes mellitus with diabetic polyneuropathy (principal); I10 Essential (primary) hypertension; E27.9 Disorder of adrenal gland, unspecified; M10.00 Idiopathic gout, unspecified site
CPT/HCPCS: 36415; 80053; 80061; 82150; 83036; 83690; 84443; 85027

== ENCOUNTER 2025-07-16 16:14 | Emergency (ER) | payer MEDICARE, SELFPAY ==
[2025-07-16 16:14] VITALS: BP 142/74; PULSE 80; RESP 16; RESP 20; TEMP 36.6; O2SAT 100
[2025-07-16] MEDS: SODIUM CHLORIDE 0.9% IV 1,000 ML 999 ML IV CONT (16:42)
[2025-07-16 16:49] LABS: Hematocrit 42.7 % (35.0-42.0); Hemoglobin 13.2 g/dL (11.7-13.8); Immature Granulocyte Percent A 0.6 % (0.0-0.0); Lymphocytes Absolute Auto 2.23 K/mm3 (1.10-4.50); Mean Corpuscular HGB Conc 30.9 g/dL (32-36); Mean Corpuscular Hemoglobin 25.2 pg (27.0-31.0); Mean Corpuscular Volume 81.6 fL (78.0-102.0); Nucleated Red Blood Cells Absolute Auto 0.00 K/mm3 (0.00-0.00); Nucleated Red Blood Cells Perc 0.0 % (0-0.0); Platelet Count Result 258 K/mm3 (150-420); Red Blood Count 5.23 M/mm3 (4.20-5.40); White Blood Count 8.5 K/mm3 (4.8-10.8)
[2025-07-16 17:00] VITALS: BP 132/77; PULSE 79; RESP 16; O2SAT 98
[2025-07-16 17:01] LABS: Add Urine Microscopic? NO; Appearance Urine Clear (Clear); Glucose Urine UA 3+ (Negative); Leukocyte Esterase Ur Negative LEU/UL (Negative); Nitrate Urine Negative (Negative); Specific Grav Ur 1.010 (1.010-1.020)
[2025-07-16 17:01] LABS: Alanine Aminotransferase 23 U/L (6-35); Albumin Level 4.4 g/dL (3.5-5.1); Alkaline Phosphatase 88 U/L (38-126); Anion Gap 11 mmol/L (4-12); Aspartate Amino Transferase 28 U/L (14-36); Bilirubin,Total 0.5 mg/dL (0.2-1.3); Blood Urea Nitrogen 46 mg/dL (7-17); Calcium 10.4 mg/dL (8.4-10.2); Carbon Dioxide 28 mmol/L (22-30); Chloride 93 mmol/L (98-107); Estimated CRCL calculation 22 ml/min; Estimated Glomerular Filt Rate 23; Osmolality Calculated 313 mOsm/kg (285-295); Potassium 4.2 mmol/L (3.4-5.0); Sodium 132 mmol/L (137-145); Total Protein 9.6 g/dL (6.3-8.2)
[2025-07-16 17:06] LABS: Glucose 600 mg/dL (65-110)
[2025-07-16] MEDS: INSULIN HUMAN REGULAR (*BKC) 1,000 UNITS/10 ML VIAL 10 UNITS IV PUSH (17:30)
[2025-07-16 18:00] VITALS: BP 129/60; PULSE 77; RESP 18; TEMP 37.1; O2SAT 97
[2025-07-16] MEDS: SODIUM CHLORIDE 0.9% IV 500 ML 999 ML IV CONT (18:30)
[2025-07-16] MEDS: INSULIN HUMAN REGULAR (*BKC) 1,000 UNITS/10 ML VIAL 8 UNITS IV PUSH (18:30)
[2025-07-16 18:51] VITALS: BP 132/66; PULSE 76; RESP 15; O2SAT 99
--- NOTE | 2025-07-16 19:37 | ED.GENADULT ---
HPI - General Adult General Chief complaint: Unspecified Stated complaint: high glucose Time Seen by Provider: 07/16/25 16:16 Source: patient Mode of arrival: wheelchair Limitations: no limitations History of Present Illness HPI narrative: [facility] is a 70[facility]old [facility] patient was brought over by [facility] staff in a wheelchair with an elevated blood glucose level. Patient is a known diabetic and uncertain of compliance with her diabetic medication. Otherwise patient denies any abdominal pain no chest pain no fever chills no nausea vomiting no diarrhea constipation. Onset (ago): hour(s) Severity: moderate Related Data Home Medications ?Medication ?Instructions ?Recorded ?Confirmed ?Last Taken ?Type acetaminophen 500 mg tablet 500 mg PO Q6H PRN Pain 07/25/23 10/06/23 Unknown History bisacodyl 5 mg tablet 5 mg PO .COMPLEX 07/25/23 10/06/23 Unknown History capsaicin 0.075 % topical cream 1 applic topical BID 07/25/23 10/06/23 Unknown History cetirizine 10 mg tablet (Zyrtec) 10 mg PO DAILY 07/25/23 10/06/23 Unknown History fluticasone propionate 50 1 spray intranasal DAILY 07/25/23 10/06/23 Unknown History mcg/actuation nasal spray,suspension gabapentin 300 mg capsule 300 mg PO TID 07/25/23 10/06/23 Unknown History polyethylene glycol 3350 17 gram 17 g PO DAILY PRN Constipation 07/25/23 10/06/23 Unknown History oral powder packet tramadol 50 mg tablet 50 mg PO Q6H PRN Pain 07/25/23 10/06/23 Unknown History venlafaxine 37.5 mg tablet 37.5 mg PO DAILY 07/25/23 10/06/23 Unknown History calcium carbonate 500 mg PO BID 10/06/23 10/06/23 Unknown History cholecalciferol (vitamin D3) 10 15 mcg PO BID 10/06/23 10/06/23 Unknown History mcg (400 unit) tablet Allergies Allergy/AdvReac Type Severity Reaction Status Date / Time Sulfa (Sulfonamide Allergy Unknown Unknown Verified 07/16/25 16:16 Antibiotics) Review of Systems Review of Systems: All systems reviewed & are unremarkable except as noted in HPI and below PMFSH Past Medical History Medical History Poor dentition Effusion of knee joint right Instability of knee joint Valgus deformity, not elsewhere classified, right knee Muscular deconditioning Right knee DJD Family History Family History Unknown Hypertension Lung disease Heart disease Diabetes mellitus Arthritis Hyperlipidemia Social History Social History Smoking packs per day: 1 Smoking cigarettes per day: 20.0 Years smoked: 53 Smoking pack-years: 53.00 Smoking status: Former smoker Tobacco type: cigarettes Second hand tobacco smoke exposure: No Smoking end date: 10/08/20 Alcohol intake: former Substance use: never Do You Feel Safe in your Home?: Yes Lack of Transportation: No Lack of Food: Never True Current Housing: I Have Housing Concerned About Future Housing: No Difficulty Paying Gas/Electric Bills: No Difficulty Paying for Meds: No Currently Unemployed: No Education: High School Diploma/GED Difficulty w/ Childcare or Family Care: No Occupation/Education: retired Gender identity (if verbalized by the patient): Female Spiritual care concerns: No Exam Const: General: cooperative, healthy appearing, comfortable, no acute distress and well developed Neck: Neck: normal visual inspection, full ROM and no lymphadenopathy Chest: Chest palpation & inspection: normal inspection of the chest Resp: Effort & Inspection: normal respiratory effort and able to speak in complete sentences Auscultation: clear to auscultation bilaterally Cardio: Jugular venous distension: no JVD Palpation: normal PMI Rate: regular rate Rhythm: regular rhythm Heart sounds: S1 normal heart sound present and S2 normal heart sound present : General: Yes bimanual renal exam normal bilaterally Skin: General skin exam: normal color and no rashes or lesions noted Course Course Emergency Course: Medical decision making narrative: The patient was evaluated by myself in the emergency department. History obtained from patient who is an independent historian physical exam performed and witnessed by andria Medina. External records medical records were received and reviewed at this time. Patient had blood work performed that showed a blood glucose level of over 600. Patient was started on IV fluids, patient was given 10units of IV insulin which brought her blood sugars down to 474 and continued IV fluids with total of 1.5L and subsequent dose of 8units of regular insulin given current blood sugar is 194. Repeat assessment patient doing well on exam with no acute distress. Symptoms improved since arrival to the emergency department. Repeat vitals are stable. Patient agrees with discussion and after shared medical decision-making and agrees to discharge back to the [facility]. All questions answered and the patient to patient's satisfaction. Advised follow-up primary care within 3 to 5 days. Vital Signs Vital signs: Vital Signs Temperature 36.6 C 07/16/25 16:14 Pulse Rate 80 07/16/25 16:14 Respiratory Rate 16 07/16/25 16:14 Blood Pressure 142/74 H 07/16/25 16:14 Pulse Oximetry 100 07/16/25 16:14 Oxygen Delivery Room Air 07/16/25 16:14 Fraction of Inspired Oxygen 99 07/16/25 16:14 Temperature 37.1 C 07/16/25 18:00 Pulse Rate 76 07/16/25 18:51 Respiratory Rate 15 07/16/25 18:51 Blood Pressure 132/66 07/16/25 18:51 Pulse Oximetry 99 07/16/25 18:51 Oxygen Delivery Room Air 07/16/25 18:51 Fraction of Inspired Oxygen 99 07/16/25 16:14 Medical Decision Making Vital Signs Vital Signs: Vital Signs Temperature 36.6 C 07/16/25 16:14 Pulse Rate 80 07/16/25 16:14 Respiratory Rate 16 07/16/25 16:14 Blood Pressure 142/74 H 07/16/25 16:14 Pulse Oximetry 100 07/16/25 16:14 Oxygen Delivery Room Air 07/16/25 16:14 Fraction of Inspired Oxygen 99 07/16/25 16:14 Temperature 37.1 C 07/16/25 18:00 Pulse Rate 76 07/16/25 18:51 Respiratory Rate 15 07/16/25 18:51 Blood Pressure 132/66 07/16/25 18:51 Pulse Oximetry 99 07/16/25 18:51 Oxygen Delivery Room Air 07/16/25 18:51 Fraction of Inspired Oxygen 99 07/16/25 16:14 Lab Data 07/16/25 16:36 07/16/25 16:36 Labs: Lab Results 07/16/25 07/16/25 Range/Units 16:36 16:53 WBC 8.5 (4.8-10.8) K/mm3 RBC 5.23 (4.20-5.40) M/mm3 Hgb 13.2 (11.7-13.8) g/dL Hct 42.7 H (35.0-42.0) % MCV 81.6 (78.0-102.0) fL MCH 25.2 L (27.0-31.0) pg MCHC 30.9 L (32-36) g/dL RDW 14.3 (11.6-14.4) % Plt Count 258 (150-420) K/mm3 MPV 12.7 H (9.2-11.8) fl Immature Gran % (Auto) 0.6 H (0.0-0.0) % Neut % (Auto) 62.1 (50.0-70.0) % Lymph % (Auto) 26.1 (18.0-42.0) % [place] % (Auto) 6.8 (2.0-11.0) % Eos % (Auto) 3.8 (1.0-6.0) % Baso % (Auto) 0.6 (0.0-1.0) % Lymph # (Auto) 2.23 (1.10-4.50) K/mm3 [place] # (Auto) 0.58 (0.10-0.90) K/mm3 Eos # (Auto) 0.32 (0.02-0.50) K/mm3 Baso # (Auto) 0.05 (0.00-0.10) K/mm3 Abs Immat Gran (auto) 0.05 H (0.00-0.00) K/mm3 Absolute Neuts (auto) 5.30 (1.70-7.20) K/mm3 Absolute Nucleated RBC 0.00 (0.00-0.00) K/mm3 Nucleated RBC % 0.0 (0-0.0) % Sodium 132 L (137-145) mmol/L Potassium 4.2 (3.4-5.0) mmol/L Chloride 93 L (98-107) mmol/L Carbon Dioxide 28 (22-30) mmol/L Anion Gap 11 (4-12) mmol/L BUN 46 H (7-17) mg/dL Creatinine 2.08 H (0.7-1.0) mg/dL Estim Creat Clear Calc 22 ml/min Estimated GFR 23 L (59 - ) Glucose 600 H* (65-110) mg/dL Calculated Osmolality 313 H (285-295) mOsm/kg Lactic Acid 1.4 (0.4-2.0) mmol/L Calcium 10.4 H (8.4-10.2) mg/dL Total Bilirubin 0.5 (0.2-1.3) mg/dL AST 28 (14-36) U/L ALT 23 (6-35) U/L Alkaline Phosphatase 88 (38-126) U/L Total Protein 9.6 H (6.3-8.2) g/dL Albumin 4.4 (3.5-5.1) g/dL Urine Color Light yellow (Yellow) Urine Appearance Clear (Clear) Urine pH 5.5 (5.0-8.0) Ur Specific [place] 1.010 (1.010-1.020) Urine Protein Negative (Negative) Urine Glucose (UA) 3+ H (Negative) Urine Ketones Negative (Negative) Ur Blood (Man) Negative (Negative) Urine Nitrate Negative (Negative) Urine Bilirubin Negative (Negative) Urine Urobilinogen 0.2 (0.2-1.0) mg/dL Leukocyte Esterase Rfl Negative (Negative) [place] Critical Care Time Critical Care Time Critical Care Time: No Discharge Plan Discharge Clinical Impression: Hyperglycemia Diabetes mellitus Qualifiers: Diabetes mellitus type: type 2 Diabetes mellitus terminal make up operator insulin use: with terminal make up operator use Diabetes mellitus complication status: with other specified complication Qualified Code(s): E11.69 - Type 2 diabetes mellitus with other specified complication Patient Disposition: [place] Assisted/Asst Living Condition: Stable Instructions: Antibiotic Form Additional Instructions: advised to continue her Lantus / insulin as scheduled advise [facility] staff to give her medication and follow with primary care physician within the next 3 to 5 days for further evaluation and treatment. Patient Language: Slovenian Prescriptions: No Action calcium carbonate 500 mg calcium (1,250 mg) Tablet 500 mg PO BID cholecalciferol (vitamin D3) 10 mcg (400 unit) Tablet 15 mcg PO BID amiodarone 100 mg tablet 100 mg PO DAILY Qty: 30 0RF acetaminophen 500 mg tablet 500 mg PO Q6H PRN (Reason: Pain) polyethylene glycol 3350 17 gram powder in packet 17 g PO DAILY PRN (Reason: Constipation) cetirizine [Zyrtec] 10 mg tablet 10 mg PO DAILY capsaicin 0.075 % cream 1 applic topical BID Rx Instructions: do not wash area for at least 30 min after application tramadol 50 mg tablet 50 mg PO Q6H PRN (Reason: Pain) venlafaxine 37.5 mg tablet 37.5 mg PO DAILY gabapentin 300 mg capsule 300 mg PO TID fluticasone propionate 50 mcg/actuation spray,suspension 1 spray intranasal DAILY Rx Instructions: administer into each nostril bisacodyl 5 mg tablet 5 mg PO .COMPLEX Rx Instructions: Give 2 tablets by mouth every 72hrs prn Follow-up/Referrals: Dmitry Mooney MD [Primary Care Provider, Internal Medicine] Stand Alone Forms: [facility] Discharge Time of Disposition: 19:43
--- NOTE | 2025-07-16 20:00 | PC.NURSE ---
Pt resting and reports feeling better, BS recheck now at 194, POC to d/c back to [facility].
--- NOTE | 2025-07-16 20:03 | PC.NURSE ---
Report called to [facility] Tava[facility] at [facility] about pt return and pts VSS at d/c. They will send someone to come get pt to bring her back to her room.
[2025-07-16 20:18] VITALS: BP 100/57; PULSE 75; RESP 18; TEMP 36.6; O2SAT 95
== END 2025-07-16 20:18 ==
PROVIDERS: Emergency Provider Emergency Medicine; PCP Family Medicine
DX: E11.65 Type 2 diabetes mellitus with hyperglycemia (principal); Z87.891 Personal history of nicotine dependence
CPT/HCPCS: 36415; 80053; 81003; 82948; 83605; 85025; 96361; 96374; 96376; 99284; J1815; J7030; J7040

== ENCOUNTER 2025-07-22 13:21 | Outpatient (CLI) | payer MEDICARE, MEDICAID, SELFPAY ==
--- NOTE | ~2025-07-22 | US_ITS ---
EXAMINATION: US arterial ankle brachial ind DATE: 07/22/2025 13:50 INDICATION: Poor pedal pulses TECHNIQUE: Segmental pressures and plethysmographic and Doppler waveforms of the brachial and lower extremity arteries were obtained. COMPARISON: None. FINDINGS: Right and left brachial artery pressures of 109 mm Hg and 93 mm Hg, respectively, are concordant (normal difference <= 30 mmHg). The right ankle-brachial index (MATILDE) is 0.67 (normal >= 0.9-1.0). The right great toe-brachial index (TBI) is 0.59 (normal >= 0.65). Arterial Doppler waveforms demonstrate normal brisk systolic upstrokes at both right posterior tibial and dorsalis pedis arteries. The left MATILDE is 0.64. The left TBI is 0.47. Arterial Doppler waveforms demonstrate normal brisk systolic upstrokes at both left posterior tibial and dorsalis pedis arteries. IMPRESSION: 1. Arterial occlusive disease to the bilateral lower limbs with moderately decreased bilateral ABIs and mildly decreased bilateral TBIs. Reviewed, dictated and finalized at location A. IMPRESSION: 1. Arterial occlusive disease to the bilateral lower limbs with moderately decr eased bilateral ABIs and mildly decreased bilateral TBIs.
--- OUTSIDE RECORDS SUMMARY | 2025-07-22 15:22 | XMS_ITS | Clinical Summary ---
Author Organization [facility] Address [address] [place] [address] Care Team Providers Care Carpenter/Labor Name Role Phone Dmitry Mooney MD Primary Care Provider [phone] Allergies Active Allergy Reactions Criticality Noted Date [...] Diagnosed Date Resolved Date Knee osteonecrosis, right 07/15/2019 Family History Medical History Relation Comments Cancer [...] 74.4 kg (164 lb) 08/18/2024 2:13 PM QUICK PRINT OPERATOR Height 161.3 cm (5' 3.5) 08/18/2024 2:13 PM QUICK PRINT OPERATOR Body Mass Index 28.6 08/18/2024 2:13 PM QUICK PRINT OPERATOR Plan of Treatment Health Maintenance Due Date Last Done Comments Colorectal Cancer Screening Colonoscopy (10 Years) 1953 Hepatitis C 1971 Mammogram Screening 1993 Zoster Vaccines (1 of 2) 2003 Pneumococcal Vaccine: 50+ Years (2 of 2 - PCV) 08/23/2017 08/23/2016 Annual Medicare Wellness Visit 2018 Dexa Scan (General) 2018 COVID-19 Vaccine (3 - season) 2025 09/04/2022, 06/08/2022 Influenza Adult (#1) 2025 07/14/2019, 07/27/2017, 07/24/2016, Additional history exists RSV [...] this topic Medical Devices Implanted Type Area Guard Dance Hall Device Identifier Shelf Expiration Date Model / Serial / Lot Cement Simplex Hv W/Gentamicin - [id number] Implanted:Qty: 1 on 05/12/2024 by Kirk Rao Jr., DO at [facility] Cement Implant Right: Knee [employer] DIV [employer] ISSA [id number] 01/05/2025 6195-1-010 / / [id number] Drill Bit Pin Gerry Headless Trocar - [id number] Implanted:Qty: 1 on 05/12/2024 by Kirk Rao Jr. DO at [facility] Drill Right: Knee [employer] [id number] 03/31/2034 [id number] / / [id number] Component Patellar 32mm Persona Vivacit-E All Poly Knee Sterile Latex Free - [id number] Implanted:Qty: 1 on 05/12/2024 by Kirk Rao Jr., DO at [facility] Knee Components Right: Knee [employer] [id number] 10/25/2028 [id number] / / [id number] Insert Artc 6-7 C-D 11mm Kn Rt Vivacit-E Persona Strl - [id number] Implanted:Qty: 1 on 05/12/2024 by Kirk Rao Jr., DO at [facility] Knee Components Right: Knee [employer] [id number] 05/28/2028 [id number] / / [id number] Screw Guide 25mm 2.5mm Persona Knee Female Hex Sterile - [id number] Implanted:Qty: 1 on 05/12/2024 by Kirk Rao Jr., DO at [facility] Screw Right: Knee [employer] [id number] 01/26/2033 [id number] / / [id number] Persona Revision Hex Headed Screw Implanted:Qty: 1 on 05/12/2024 by Kirk Rao Jr., DO at [facility] Right: Knee [employer] [id number] 05/13/2033 39-8542-084- 48 / / [id number] Persona The Personalized Knee System Cruciate Retaining Implanted:Qty: 1 on 05/12/2024 by Kirk Rao Jr., DO at [facility] Right: Knee [employer] [id number] 12/11/2032 [id number] / / [id number] Persona The Personalized Knee System Spiked Keel Implanted:Qty: 1 on 05/12/2024 by Kirk Rao Jr., DO at [facility] Right: Knee [employer] [id number] 03/05/2034 70-7056-734- 02 / / [id number] [place] [address] [place] MED[place] [facility] MEDICARE Advance Directives Documents on File Type Date Recorded Patient Thread Marker Expl anation Advance Directives and Livin g Will 05/13/2024 8:34 AM Care Teams Carpenter/Labor Relationship Specialty Start Date End Date Dmitry Mooney MD [address], [place] [id number] PCP - General FAMILY PRACTICE 07/15/19
--- OUTSIDE RECORDS SUMMARY | 2025-07-22 15:22 | XMS_ITS | Clinical Summary ---
Author Organization [facility] Address [address] [address] Care Team Providers Care Hazard Mitigation Officer Name Role Phone Dmitry Mooney MD Primary Care Provider Source Comments [facility],non-owned Affiliates and Associated Physician Practices is amultiple site organization consisting of ambulatory clinics and hospital sitesin [place], [place], [place] and [place]. This disclosure is being madepursuant to the Care Everywhere program and may not contain all information available regarding this patient. Last updated 18.[facility] Allergies Active Allergy Reactions Criticality Noted Date Comments Sulfa Drugs Rash Medium 10/11/2022 Medications * Be aware that medications may not be up to date on this document. Alwaysverify current medications with the patient. fluticasone propionate (Flonase) 50 MCG/ACT nasal spray [place] 2 (two) sprays into each nostril once [...] on file Legal Sex Female 4:25 PM RETAIL MANAGEMENT KEYHOLDER Gender Identity Not on file Sexual Orientation Not on file Last Filed Vital Signs Vital Sign Reading Time Taken Comments Blood Pressure 110/69 12/12/2022 2:44 PM RETAIL MANAGEMENT KEYHOLDER Pulse 108 12/12/2022 2:44 PM RETAIL MANAGEMENT KEYHOLDER Temperature 36.6 C (97.9 F) 12/12/2022 2:44 PM RETAIL MANAGEMENT KEYHOLDER Respiratory Rate 18 12/01/2022 12:13 PM RETAIL MANAGEMENT KEYHOLDER Oxygen Saturation 97% 12/12/2022 2:44 PM RETAIL MANAGEMENT KEYHOLDER Inhaled Oxygen Concentration - - Weight 57.6 kg (127 lb) 12/12/2022 2:44 PM RETAIL MANAGEMENT KEYHOLDER Height 160 cm (5' 3) 12/12/2022 2:44 PM RETAIL MANAGEMENT KEYHOLDER Body Mass Index 22.5 12/12/2022 2:44 PM RETAIL MANAGEMENT KEYHOLDER Plan of Treatment Health Maintenance Due Date [...] 2003 ZOSTER VACCINE (1 of 2) 2003 DEPRESSION SCREENING 10/08/2024 MEDICARE AWV CALENDAR YEAR 2024 COVID-19 VACCINE (1 - 2023-2 5 season) 2025 INFLUENZA VACCINE (#1) 2025 Respiratory Syncytial Virus [...] this topic Medical Devices Implanted Type Area Research Interviewer Device Identifier Shelf Expiration Date Model / Serial / Lot Stent Uret Tria Sft 6fr 22cm W Sh Implanted:Qty: 1 on 10/12/2022 by Kervin Mireles MD at [facility] Right: [employer] [id number] 0 / / Stent Uret 6fr 24cm Sft Tria Implanted:Qty: 1 on 11/30/2022 by Abhay Be MD at [facility] Right: [employer] 08/09/2025 [id number] / / [id number] Insurance [facility] MANAGED MEDICARE ADV [facility] MANAGED MEDICARE ADV [facility] Advance Directives Documents on File Type Date Recorded Patient Auto Body Estimator Expl anation Adv Directive/Living Will/POA 10/16/2022 4:50 PM [facility] * Full Code (Latest Code Status on [...] 9:29 PM 10/11/2022 10:58 PM Care Teams Hazard Mitigation Officer Relationship Specialty Start Date End Date Dmitry Mooney MD [address] [place] [address] PCP - General 12/07/22
== END 2025-07-22 13:22 | disposition home or self-care (01) ==
LOC: CHSIMG 13:22
PROVIDERS: PCP Family Medicine; Visit Provider Family Medicine
DX: I25.10 Atherosclerotic heart disease of native coronary artery without angina pectoris (principal); I73.9 Peripheral vascular disease, unspecified
CPT/HCPCS: 93922